=== PATIENT | male | born 1965 | race Caucasian/White ===

== ENCOUNTER 2020-06-07 11:05 | Outpatient (REF) | payer OTHER, SELFPAY ==
[2020-06-07 12:32] LABS: COVID-19 Test Negative (Negative); IDNOW Serial# 55D5AD1C
== END 2020-06-07 11:06 | disposition home or self-care (01) ==
LOC: HO.LAB 11:05
PROVIDERS: Visit Provider Internal Medicine
DX: Z20.822 Contact with and (suspected) exposure to COVID-19 (principal)
CPT/HCPCS: 36415; 87635; C9803

== ENCOUNTER 2022-05-16 09:25 | Day surgery (SDC) | payer BC, SELFPAY ==
--- NOTE | 2022-05-15 10:37 | HO.ANESPROP2 ---
HPI - Anesthesia Eval Consult details Narrative: 56yo M for Colonoscopy PMFSH Past Medical History Medical History Murmur Sleep apnea Surgical History Surgical History Hx of colonoscopy Hx of foot surgery Social History Social History Patient Tobacco Use Status: Former Tobacco user Quit Date: 25 yrs ago Use of substances other than those prescribed or required for medical reasons: Yes Substance Use Frequency: Occasionally Are you DNR?: No Advance Directives: No Advance Directives Information Provided: Yes Meds Allergies Allergy/AdvReac Type Severity Reaction Status Date / Time latex [LATEX] Allergy Unknown CONTACT Verified 05/16/22 09:43 DERMITITIS Home Medications Medication Instructions Recorded Confirmed Last Taken Type No Known Home Meds 05/16/22 05/16/22 Unknown History Exam Exam Date and Time: May 15, 2022 1037 Assessment and Plan Assessment Anesthesia Assessment: Chart Reviewed
[2022-05-16 09:44] VITALS: BMI 26.0
[2022-05-16 09:51] VITALS: BP 151/73; PULSE 62; RESP 15; TEMP 36.1; O2SAT 99
[2022-05-16] MEDS: Lactated Ringers 1,000 ML 100 ML IVCONT (10:04)
--- NOTE | 2022-05-16 11:34 | MHC.SHP ---
Pre-Procedural Eval Section A Date of Service: 05/16/22 The patient is an INPATIENT: No Changes since office visit: No Cold of Flu in the past 2 weeks, No New Medical Problems, No Changes in Medication and No Patient answered all questions The History & Physical has been completed within 30 days and I have reviewed it.: Yes Section B Chief Complaint: screening Allergies: Allergies Allergy/AdvReac Type Severity Reaction Status Date / Time latex [LATEX] Allergy Unknown CONTACT Verified 05/16/22 09:43 DERMITITIS Plan I have reviewed the history and physical and performed a pertinent physical examination on my patient. No changes have occurred unless specified. Time Spent With Patient Time: Total time managing care of this patient today ____ minutes.
--- NOTE | 2022-05-16 12:09 | HO.ANESPROP2 ---
[facility] [place] Past Medical History Medical History Murmur Sleep apnea Surgical History Surgical History Hx of colonoscopy Hx of foot surgery History of Problems with Anesthesia: No Social History Social History Patient Tobacco Use Status: Former Tobacco user Quit Date: 25 yrs ago Use of substances other than those prescribed or required for medical reasons: Yes Substance Use Frequency: Occasionally Are you DNR?: No Advance Directives: No Advance Directives Information Provided: Yes Meds Allergies Allergy/AdvReac Type Severity Reaction Status Date / Time latex [LATEX] Allergy Unknown CONTACT Verified 05/16/22 09:43 DERMITITIS Active Medications: Current Medications Lactated Ringer's (Lr) 1,000 mls @ 100 mls/hr IVCONT .Q10H TREVIN Last Admin: 05/16/22 10:04 Dose: 100 mls/hr Home Medications Medication Instructions Recorded Confirmed Last Taken Type No Known Home Meds 05/16/22 05/16/22 Unknown History Exam Exam Date and Time: May 16, 2022 1209 Height,Weight and Vital Signs: Height 6 ft Weight 87.09 kg Last Vital Signs Temp 97.0 F 05/16/22 09:51 Pulse 62 05/16/22 09:51 Resp 15 05/16/22 09:51 BP 151/73 H 05/16/22 09:51 Pulse Ox 99 05/16/22 09:51 O2 Del Method Room Air 05/16/22 09:51 Airway Mallampati Class: III TM Dist: >3cm Neck ROM: Full Heart: RRR Lungs: CTA Assessment and Plan Final Anesthetic Review History of Problems with Anesthesia: No ASA Class: II Final Preanesthetic Review: Meds/Allgs Chart Reviewed, Consent Obtained/Reviewed and Anes Risks/Benef Reviewed Patient Risk: Low Procedure Risk: Low Anesthetic Plan Anesthetic Plan: MAC: Disposition: Standard PACU and Inp. Admit - Standard Bed
[2022-05-16 12:23] VITALS: BP 100/51; PULSE 50; RESP 16; TEMP 36.3; O2SAT 100
--- NOTE | 2022-05-16 12:23 | P.BOP_ITS ---
Brief Operative Note Date of Service: 05/16/22 Pre-op diagnosis: screening Post-op diagnosis: same Procedure: colonoscopy Surgeon: Tristen Ross Anesthesia: MAC Was an Pharmacy Operations Manager used for this Procedure?: No Estimated blood loss (mL): 2 Pathology: other Condition: stable
[2022-05-16 12:38] VITALS: BP 124/69; PULSE 56; RESP 16; O2SAT 98
[2022-05-16 12:48] VITALS: BP 123/70; PULSE 54; RESP 16; TEMP 36.4; O2SAT 98
--- NOTE | 2022-05-16 13:06 | HO.POSTANES ---
Post Anesthesia Evaluation Post Anesthesia Evaluation Vital Signs: Vital Signs Temp Pulse Resp BP Pulse Ox O2 Del Method 05/16/22 12:48 97.6 F 54 16 123/70 98 Room Air 05/16/22 12:38 56 16 124/69 98 Room Air 05/16/22 12:23 97.4 F 50 16 100/51 L 100 Room Air 05/16/22 09:51 97.0 F 62 15 151/73 H 99 Room Air Anesthesia: Monitored Mental Status: Awake Pain Control: Satisfactory Nausea/Vomiting: None Hydration: Adequate Anesthesia-Related Issues: No Anes. Related Issues
--- NOTE | 2022-05-17 00:20 | OP_ITS ---
DATE OF SERVICE: 05/16/2022 SURGEON: Tristen Ross MD INDICATIONS: Colon cancer screening and family history of colon cancer. PREOPERATIVE DIAGNOSIS: POSTOPERATIVE DIAGNOSIS: PROCEDURE PERFORMED: Colonoscopy to the terminal ileum with snare polypectomy. ESTIMATED BLOOD LOSS: COMPLICATIONS: ANESTHESIA: Monitored anesthesia care. ASSISTANTS: SPECIMENS: DESCRIPTION OF PROCEDURE: A history and physical performed. The risks and benefits of the procedure were explained to the patient. Informed consent was obtained. The patient was placed in the left lateral decubitus position. A digital rectal exam was performed and was found to be normal. The Olympus pediatric video colonoscope was introduced into the rectum and advanced to the cecum without difficulty. The cecum was identified by transillumination, palpation, and identification of ileocecal valve. Examination was performed. The scope was removed. He tolerated the procedure well and was retuned to the recovery area in stable condition. FINDINGS: The terminal ileum was examined and appeared normal. The visualized colonic mucosa was normal. The quality of prep was good. Two polyps measuring less than 10 mm were identified in the rectum and removed with a cold snare. There was no other polyps identified. Retroflexed examination showed some small internal hemorrhoids. IMPRESSION: Colon polyps. RECOMMENDATION: Follow up the biopsy results. MD ELEAZAR Wright/LAYTONL / [id number]
== END 2022-05-16 13:09 | disposition home or self-care (01) ==
PROVIDERS: PCP Internal Medicine; Visit Provider Internal Medicine Gastroenterology
PROC: 0DJD8ZZ Inspection of Lower Intestinal Tract, Via Natural or Artificial Opening Endoscopic (ICD-10-PCS; CPT 45378; principal; 2022-05-16 11:10)
DX: Z12.11 Encounter for screening for malignant neoplasm of colon (principal); Z80.0 Family history of malignant neoplasm of digestive organs; K62.1 Rectal polyp; K64.8 Other hemorrhoids; G47.33 Obstructive sleep apnea (adult) (pediatric); J30.2 Other seasonal allergic rhinitis; Z99.89 Dependence on other enabling machines and devices; Z87.891 Personal history of nicotine dependence
CPT/HCPCS: 45385; 88305

== ENCOUNTER 2023-03-13 22:06 | Emergency (ER) | payer BC, SELFPAY ==
--- NOTE | 2023-03-13 | ECG_ITS ---
Test Reason : LIGHTHEADNESS Blood Pressure : / mmHG Vent. Rate : 060 BPM Atrial Rate : 060 BPM P-R Int : 158 ms QRS Dur : 092 ms QT Int : 406 ms P-R-T Axes : 066 005 059 degrees QTc Int : 406 ms Sinus rhythm with marked sinus arrhythmia Otherwise normal ECG No previous ECGs available Referred By: Arpan Dixon Electronically Signed By:Jesus Peña
--- NOTE | ~2023-03-13 | CT_ITS ---
EXAMINATION: CT HEAD WITHOUT CONTRAST CLINICAL INFORMATION: Fall. Dizziness. COMPARISON: None available. TECHNIQUE: Contiguous axial imaging was performed from the skull base to vertex without intravenous administration of contrast. This CT examination was performed using dose optimization techniques as appropriate, variously including the following: *Automated exposure control. *Adjustment of mA and/or kV according to patient size (this includes techniques or standardized protocols for targeted exams where dose is matched to indication/reason for exam; i.e. extremities or head). *Use of iterative reconstruction technique. DLP: 795 mGy-cm FINDINGS: There is no evidence of acute intracranial hemorrhage or edematous territorial infarction. Brennan-white matter differentiation is preserved. A few foci of hypoattenuation in the periventricular and deep white matter are consistent with mild microangiopathy. The ventricles are normal in morphology and size. No evidence for obstructive hydrocephalus. No abnormal mass effect or midline shift. No extra-axial fluid collections. Calcific atherosclerotic disease of the intracranial internal carotid and vertebral arteries. No hyperdense vessel sign. No acute soft tissue or osseous abnormalities. Mild mucosal thickening of the paranasal sinuses. Moderate rightward nasal septal deviation with spurring. The mastoid air cells and middle ear cavities are clear. CT/CT head/brain wo IV con IMPRESSION: 1. No evidence of acute intracranial hemorrhage or edematous territorial infarction. 2. Mild underlying microangiopathy.
--- NOTE | ~2023-03-13 | CT_ITS ---
EXAMINATION: CT ANGIOGRAM HEAD CT ANGIOGRAM NECK CLINICAL INFORMATION: Reason for Exam tia ?l sided weakness COMPARISON: None. TECHNIQUE: Test bolus sequences followed by intravenous administration 70 mL of Omnipaque 350. Helical imaging was performed in the axial plane from the aortic arch to the skull vertex. Delayed postcontrast imaging of the head was also performed. The data was processed at the chief cardiopulmonary technologist's workstation for generation of MIP sequences. Angled MIPs and volume rendered reformatted images were also generated at an offline 3D workstation. Stenoses are assessed in accordance with Gifford et al. Quantification of Carotid Stenosis on CT Angiography. AJR 2006. 27(1):13-19. This CT examination was performed using dose optimization techniques as appropriate, variously including the following: *Automated exposure control *Adjustment of mA and/or kV according to patient size (this includes techniques or standardized protocols for targeted exams where dose is matched to indication/reason for exam; i.e. extremities or head) *Use of iterative reconstruction technique DLP: 1750 mGy-cm FINDINGS: CT HEAD: Noncontrast head CT findings discussed separately. No pathologic intra-axial enhancement or regional oligemia. Moderate left sphenoid sinus mucosal disease with air-fluid level can be correlated for acute sinusitis. Moderate mucosal disease/patchy opacification of the ethmoid air cells. Frontal sinus mucosal disease with opacified frontal sinus drainage outflow tracts. Mild bilateral maxillary sinus mucosal disease with polypoid soft tissue along the medial left maxillary sinus wall which may reflect a retention cyst though can be correlated with direct inspection. CTA HEAD: Calcific plaque severely narrows the intradural left vertebral artery which demonstrates attenuated though persistent contrast filling extending distally to the vertebrobasilar confluence. Calcific plaque of the intradural right vertebral artery without significant stenosis. Calcific plaque along the carotid siphons without associated stenosis. left MANAGER RESEARCH. The remainder of the anterior and posterior circulation is widely patent. No aneurysms and no high flow vascular malformations. Timing of the contrast bolus allows assessment of the major dural venous sinuses, which all opacify normally CTA NECK: Classic 3 vessel branching pattern of the aortic arch. Origins of the great vessels are widely patent. The common carotid arteries are widely patent. The carotid bifurcations and bilateral internal carotid arteries are normal. The right vertebral artery is dominant. The vertebral artery ostia are widely patent. The dominant right vertebral artery is widely patent. 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 CT NECK: Small air-filled internal laryngocele on the left. Paramedian location of the posterior left true vocal cord and asymmetric prominence of the left laryngeal ventricle with can be correlated clinically for left vocal cord paresis versus paralysis. Cervical spondylosis. 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 Apparent severe C5-C6 and C6-C7 spinal canal stenosis with mass effect on the cord and multilevel severe neural foraminal stenosis. CT/CT angio head neck stroke IMPRESSION: 1. 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 Otherwise, no acute arterial occlusion or hemodynamically significant stenosis within the head or neck. 2. Findings described above that can be correlated clinically for left vocal cord paresis/paralysis. 3. Cervical spondylosis and ossification of the posterior longitudinal ligament at C5. Apparent severe C5-C6 and C6-C7 spinal canal stenosis with mass effect on the cord and multilevel severe neural foraminal stenosis. If there is referrable myelopathy/radiculopathy, further evaluation of these findings with dedicated cervical spine MRI may be performed as clinically warranted.
--- NOTE | 2023-03-13 22:15 | ED.NEUROSD ---
HPI - Neuro Symptoms/Deficit General Chief Complaint: General Medical Stated Complaint: AMS Time Seen by Provider: 03/13/23 22:15 Source: patient Mode of arrival: EMS Limitations: no limitations History of Present Illness HPI Narrative: Patient 57 years old otherwise healthy does not take any medication apparently was taking shower came out of the shower trying to put bathroom lost balance and fell hitting the dresser patient was slightly dizzy off balance after that and had difficulty getting up no chest pain no palpitation no vomiting no head injury no headache patient at this time feels normal no confusion. Per patient's when she noticed patient was slightly confused and leaning to the left side at difficulty standing up and noticed slight weakness on the left side no seizures patient does have history of vertigo Related Data Previous Rx's Medication Instructions Recorded aspirin 81 mg tablet,delayed 81 mg PO DAILY #30 tabs 03/14/23 release (Bess Low Dose Aspirin) Allergies Allergy/AdvReac Type Severity Reaction Status Date / Time latex [LATEX] Allergy Unknown CONTACT Verified 03/13/23 22:17 DERMITITIS Review of Systems Review of Systems: Yes all other systems are reviewed and are negative [facility] Past Medical History Medical History Murmur Sleep apnea Surgical History Hx of foot surgery Hx of colonoscopy Social History Social History Patient Tobacco Use Status: Former Tobacco user Quit Date: 25 yrs ago Smoked in Last 30 Days: No Advance Directives: No Advance Directives Information Provided: Yes Physical Exam Vital Signs: Vital Signs: Last Vital Signs Temp 97.5 F 03/13/23 22:17 Pulse 56 03/14/23 01:15 Resp 16 03/13/23 22:17 BP 144/70 H 03/14/23 01:15 Pulse Ox 98 03/14/23 01:15 O2 Del Method Room Air 03/14/23 01:15 BMI result Body Mass Index 25.7 Appearance: Alert. Oriented X3. No acute distress. Eyes: PERRLA, No Nystagmus ENT: Pharynx normal. Oral Mucosa moist Neck: Normal inspection. Neck supple. CVS: Normal heart rate and rhythm. Pulses normal. Respiratory: No respiratory distress. Equal air entry bilateral, no wheezing/rales/rhonchi Abdomen: Soft and nontender. Bowel sounds are present, no mass palpable, no CVA tenderness Skin: Skin warm and dry. Normal skin color. Normal skin turgor. Extremities: No lower extremity edema. No calf tenderness Neuro: Oriented X 3. No motor deficit. No sensory deficit.No cerebellar signs , cranial nerves II-XII intact Medications Administered Discontinued Medications Generic Name Dose Route Start Last Admin Trade Name Lori PRN Reason Stop Dose Admin Aspirin 81 mg 03/14/23 01:01 03/14/23 01:10 Aspirin Enteric Coated 81 Mg Tablet. PO 03/14/23 01:02 81 mg ONCE ONE Administration Iohexol 85 ml 03/13/23 23:56 03/13/23 23:56 Iohexol 350 Mg/Ml 100 Ml Infus..Btl IV 03/13/23 23:57 85 ml ONCE ONE Administration Medical Decision Making Medical Decision Making [facility] Narrative: Patient with history of vertigo came with off balance and feeling dizzy questionable weakness of the left side which was not appreciated on arrival no seizures noticed CT scan of the head is negative for acute stroke will do CTA head and neck to rule out any of occlusive lesion CTA showed no minute right vertebral artery with stenosis left vertebral artery no acute occlusion or stroke. Patient advised to follow with neurologist will give aspirin for now. Patient ambulatory in steady gait Differential Diagnosis Differential Diagnoses: The differential diagnosis associated with the presentation includes TIA/vertigo/dizziness/epilepsy Lab Data [facility] Lab Attestation statement: I reviewed the patient's lab results. 03/13/23 22:28 03/13/23 22:28 Labs: Lab Results 03/13/23 Range/Units 22:28 WBC 9.1 (4.8-10.8) X10*3/uL RBC 4.31 L (4.60-5.80) X10*6/uL Hgb 14.2 (14.0-18.0) g/dl Hct 41.1 L (42.0-52.0) % MCV 95.4 (80.0-98.0) fL MCH 32.9 (27.0-33.0) pg MCHC 34.5 (31.0-36.0) g/dl RDW 12.1 (11.0-16.0) % Plt Count 212 (160-400) X10*3/uL MPV 9.8 (9.4-12.4) fL Immature Gran % (Auto) 0.4 (0.0-0.4) % Neut % (Auto) 50.8 (45-73) % Lymph % (Auto) 31.9 (20-40) % [place] % (Auto) 14.3 H (2-11) % Eos % (Auto) 1.9 (0-4) % Baso % (Auto) 0.7 (0-2) % Lymph # (Auto) 2.9 (1.2-4.9) X10*3/uL [place] # (Auto) 1.3 H (0.1-1.2) X10*3/uL Eos # (Auto) 0.2 (0.0-0.4) X10*3/uL Baso # (Auto) 0.1 (0.0-0.2) X10*3/uL Abs Immat Gran (auto) 0.04 H (0.00-0.03) X10*3/uL Absolute Neuts (auto) 4.6 (2.0-8.3) x10*3/uL Absolute Nucleated RBC 0.000 (0.0-0.012) X10*3/uL Nucleated RBC % (auto) 0.0 (0.0-0.2) /100WBC Sodium 140 (135-145) mmol/L Potassium 3.7 (3.3-5.1) mmol/L Chloride 106 (96-108) mmol/L Carbon Dioxide 24 (22-29) mmol/L Anion Gap 14 (12-20) BUN 14 (9-16) mg/dL Creatinine 0.92 (0.5-1.4) mg/dL Estim Creat Clear Calc 94.8 Estimated GFR > 60 Random Glucose 108 (60-115) mg/dL Calcium 9.2 (8.4-10.2) mg/dL Total Bilirubin 0.3 (0.0-1.0) mg/dL AST 27 (5-37) U/L ALT 24 (0-40) U/L Alkaline Phosphatase 73 (39-117) U/L Troponin I High Sens < 2.7 (<3.5-35.0) ng/L Total Protein 7.0 (6.5-8.0) g/dL Albumin 3.7 (3.5-5.0) g/dL Independent Interpretation I performed an independent interpretation of an: EKG and CT Scan Interpretation: Normal sinus rhythm heart rate 60 beats per minute normal interval normal axis no acute ST T wave changes no acute ischemia Radiology Impression Discussion of test interpretation with radiology: I have reviewed the radiologist's reading. NIH Stroke Scale Internal: Initial- Upon Arrival Time: 22:18 Level of Consciousness: Alert Level of Consciousness Questions: Answers both questions correctly Level of Consciousness Commands: Performs both tasks correctly Best Gaze: Normal Visual: No visual loss Facial Palsy: Normal Motor Arm (Right): No drift Motor Arm (Left): No drift Motor Leg (Right): No drift Motor Leg (Left): No drift Limb Ataxia: Absent Sensory: Normal Best Language: No aphasia Dysarthia: Normal Extinction and Inattention: No abnormality Score: 0 Discharge Plan Discharge Clinical Impression: Dizziness Patient Disposition: Home, Self-Care Instructions: Lightheadedness (ED), Dizziness (ED) Additional Instructions: Cause of dizziness not very clear , you have narrow vertebral artery on the left side maybe that is the cause for dizziness Take baby aspirin daily Follow with neurologist for further evaluation Prescriptions: New aspirin [Bess Low Dose Aspirin] 81 mg tablet,delayed release (DR/EC) 81 mg PO DAILY Qty: 30 0RF Referrals: Cj Whitten MD [Physician] - 1 week Interventions: ED Discharge Assessment Last Done: 03/14/23 01:20 Discharge Date/Time: 03/14/23 01:21
[2023-03-13 22:17] VITALS: BP 140/69; BP 140/90; PULSE 59; RESP 16; TEMP 36.4; O2SAT 96; BMI 25.7
[2023-03-13 22:32] LABS: MANUAL DIFF FLAG NO
[2023-03-13 22:34] LABS: Basophils Absolute Auto 0.1 X10*3/uL (0.0-0.2); Basophils Percent Auto 0.7 % (0-2); Eosinophils Absolute Auto 0.2 X10*3/uL (0.0-0.4); Eosinophils Percent Auto 1.9 % (0-4); Hematocrit 41.1 % (42.0-52.0); Hemoglobin 14.2 g/dl (14.0-18.0); Imm Gran Abs Auto 0.04 X10*3/uL (0.00-0.03); Imm Gran Pct Auto 0.4 % (0.0-0.4); Lymphocytes Absolute Auto 2.9 X10*3/uL (1.2-4.9); Lymphocytes Percent Auto 31.9 % (20-40); Mean Corpuscular HGB Conc 34.5 g/dl (31.0-36.0); Mean Corpuscular Hemoglobin 32.9 pg (27.0-33.0); Mean Corpuscular Volume 95.4 fL (80.0-98.0); Mean Platelet Volume 9.8 fL (9.4-12.4); Monocytes Absolute Auto 1.3 X10*3/uL (0.1-1.2); Monocytes Percent Auto 14.3 % (2-11); Neutrophils Absolute Auto 4.6 x10*3/uL (2.0-8.3); Neutrophils Percent Auto 50.8 % (45-73); Platelet Count 212 X10*3/uL (160-400); Red Blood Count 4.31 X10*6/uL (4.60-5.80); Red Cell Distribution Width 12.1 % (11.0-16.0); White Blood Count 9.1 X10*3/uL (4.8-10.8)
[2023-03-13 22:41] VITALS: BP 123/65; PULSE 52
[2023-03-13 22:45] VITALS: BP 133/67; PULSE 63
[2023-03-13 22:46] VITALS: BP 138/71; PULSE 58
[2023-03-13 22:47] LABS: Alanine Aminotransferase 24 U/L (0-40); Albumin Level 3.7 g/dL (3.5-5.0); Alkaline Phosphatase 73 U/L (39-117); Anion Gap 14 (12-20); Aspartate Amino Transferase 27 U/L (5-37); Bilirubin Total 0.3 mg/dL (0.0-1.0); Blood Urea Nitrogen 14 mg/dL (9-16); Calcium 9.2 mg/dL (8.4-10.2); Carbon Dioxide 24 mmol/L (22-29); Chloride 106 mmol/L (96-108); Creatinine Clr Calc Pharmacy 94.8; Estimated Glomerular Filt Rate > 60; Glucose Random 108 mg/dL (60-115); Potassium 3.7 mmol/L (3.3-5.1); Sodium 140 mmol/L (135-145)
[2023-03-13 22:54] LABS: Troponin-I High Sensitivity < 2.7 ng/L (<3.5-35.0)
[2023-03-13] MEDS: iohexoL 350 MG/ML 100 ML INFUS..BTL 85 ML IV (23:56)
[2023-03-14] MEDS: Aspirin Enteric Coated 81 MG TABLET.DR PO (01:10)
[2023-03-14 01:15] VITALS: BP 144/70; PULSE 56; O2SAT 98
== END 2023-03-14 01:21 | disposition home or self-care (01) ==
PROVIDERS: Emergency Provider Internal Medicine
DX: R42 Dizziness and giddiness (principal); R53.1 Weakness; Z91.81 History of falling
CPT/HCPCS: 36415; 70450; 70496; 70498; 80053; 84484; 85025; 93005; 99284; Q9967

== ENCOUNTER → 2023-03-13 22:24 | Outpatient (BNV) | payer BC, SELFPAY | PROVIDERS: Emergency Provider Internal Medicine; Visit Provider Internal Medicine Cardiovascular Disease | DX: R42 Dizziness and giddiness (principal) | CPT/HCPCS: 93010 ==

== ENCOUNTER 2023-04-01 08:31 | Outpatient (AMB) | payer BC, SELFPAY ==
[2023-04-01 08:33] VITALS: BP 120/80; PULSE 76; BMI 26.6
--- NOTE | 2023-04-01 08:33 | MHC.OFFVIS ---
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 On March 13 he was doing his routine, he had his supper and then subsequently went on for a shower. When he came out of the shower he does not recall but he was in the bedroom and then the heard a crash came running to the bedroom. She found that he was standing but dazed. Did not appear to be pale or diaphoretic. It seems like he had fallen down and hit the dresser as everything was scattered. Patient remained days, made him sit down and he was falling instructions but still not participating in entire conversation. Patient seems like might have had a focal neurologic finding although there was no facial asymmetry. There was no bowel bladder incontinence or tongue bites. Patient then remained somewhat dazed and EMS was called. By the time EMS came he was more conversational. However he had difficulty getting into the chair and had to be held. Patient does not recall any other symptoms. Does not recall being nauseous, having palpitations, having chest pain or shortness of breath, feeling lightheaded or warm. He does not recall being diaphoretic. He said he has not had similar symptoms in the past. He has never had syncopal episode in the past. He does have history of vertigo which is episodic. Came to the emergency room and the workup here, EKG showed sinus rhythm with sinus arrhythmia otherwise normal EKG. Head CT was negative. 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 He has been started on low-dose aspirin therapy. He denies any prior vascular issues. Mother has history of atrial fibrillation at a later age. He drinks about 500 mL of water every day. Drinks a cup of coffee in the morning. Has couple of beers every night PFS Medical History Murmur Sleep apnea Surgical History Hx of foot surgery Hx of colonoscopy Family History Father HTN (hypertension) Mother No problems noted. Social History Patient Tobacco Use Status: Former Tobacco user Quit Date: 25 yrs ago Review of Systems Const Denies chills, Denies daytime sleepiness, Denies fatigue, Denies fever(s), Denies frequent falls, Denies poor appetite, Denies snoring, Denies stops breathing during sleep, Denies weakness, Denies weight gain and Denies weight loss Eyes Denies loss of vision ENT Denies dizziness and Denies hearing loss Card Denies chest pain, Denies claudication, Denies leg edema, Denies lightheadedness, Denies palpitations, Denies dyspnea, Denies dyspnea on exertion and Denies orthopnea Resp Denies cough, Denies excessive phlegm production, Denies dyspnea, Denies dyspnea on exertion, Denies snoring and Denies wheezing GI Denies abdominal pain, Denies hematochezia, Denies change in bowel habits, Denies nausea and Denies vomiting Denies dysuria and Denies urinary frequency Musc Denies arthralgias, Denies muscle weakness, Denies numbness and Denies other (frequent falls) Skin/Breast Denies nail changes and Denies rash Neuro Denies Abnormal speech present, Denies dizziness, Denies frequent falls, Denies loss of vision, Denies memory loss, Denies numbness and Denies weakness Psych Denies depression and Denies memory loss Endo Denies fatigue and Denies palpitations Erick/Lymph Reports easy bruising and Reports other (anemia) Aller/Immun Denies wheezing Physical Exam Vital Signs: Last Vital Signs Pulse 76 04/01/23 08:33 BP 120/80 04/01/23 08:33 BMI result Body Mass Index 26.6 Const General: cooperative, comfortable, no acute distress, alert, awake and Physically active Nutritional Appearance: average body habitus Orientation/consciousness: patient oriented x3 Limitations: no limitations HEENT Head: Yes normocephalic and Yes atraumatic Neck Neck: Yes trachea midline, Yes supple and Yes no JVD Resp Effort & Inspection: normal respiratory effort Auscultation: clear to auscultation bilaterally Cardio Jugular venous distension: no JVD Palpation: normal PMI Rate: regular rate Rhythm: regular rhythm Heart sounds: S1 normal heart sound present, S2 normal heart sound present, no click, no gallops, no murmurs and no rubs GI Auscultation: normal bowel sounds Skin General skin exam: no rashes or lesions noted Neuro General: patient oriented x3 and no focal motor deficits Speech: No Abnormal speech present Extrem General: Yes no clubbing, cyanosis or edema Psych Appearance: grossly normal Assessment & Plan Assessment & Plan (1) Syncope: Code(s): R55 - Syncope and collapse Plan: Syncopal episode, 1 time with no recurrence since then. Situationally syncope appears to be either vasovagal or orthostatic in nature although he had no clear prodrome and had a prolonged recovery time afterwards. Neurologic issues are less likely. Although his post syncopal confusion appears to be could be related to concussion. He is scheduled for some neurologic workup in the future. However need to rule out any significant malignant etiology of his syncopal episode. Need to evaluate for underlying structural heart disease and will therefore schedule him for stress echocardiogram and echocardiogram to assess for coronary artery disease and/or any other structural abnormalities that makes him more prone to get ventricular arrhythmias. Also suggest a 14 day Holter monitor to rule out any Apollo arrhythmias or tachyarrhythmias. I have advised him to increase his fluid and water intake and cut down on his alcohol intake. If his initial workup is within normal limits would suggest head-up tilt-table test to assess for autonomic function with tilt-table testing. This was discussed with him and his . They understand and agree. Will follow up in the clinic after above-mentioned test. Thank you for allowing me to partake in his care Orders: Orders ECG Tilt Table Test Today R55 - Syncope and collapse CA echo transthoracic complete Today R55 - Syncope and collapse ECG 14 day holter monitor Today R55 - Syncope and collapse CA echo stress exercise Today R55 - Syncope and collapse Coding Level of Care Code New Pt Level 4 (06656) Diagnoses Syncope R55
== END 2023-04-01 09:25 | disposition home or self-care (01) ==
PROVIDERS: PCP Internal Medicine; Visit Provider Internal Medicine Cardiovascular Disease
DX: R55 Syncope and collapse (principal)
CPT/HCPCS: 99204

== ENCOUNTER → 2023-04-01 08:31 | Outpatient (BNVA) | payer BC, SELFPAY | PROVIDERS: PCP Internal Medicine; Visit Provider Internal Medicine Cardiovascular Disease ==

== ENCOUNTER 2023-04-02 18:56 | Outpatient (REF) | payer BC, SELFPAY ==
--- NOTE | ~2023-04-02 | MR_ITS ---
MRI OF THE BRAIN WITHOUT IV CONTRAST MRI OF THE CERVICAL SPINE WITHOUT IV CONTRAST INDICATION: Cervical stenosis. COMPARISON: CTA head and neck 03/13/2023. TECHNIQUE: Multiplanar multisequence MR imaging of the brain and cervical spine obtained without IV contrast. FINDINGS: BRAIN MRI: There is no hydrocephalus, extra-axial surface collection, or herniation. 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 There are mild scattered T2 signal changes throughout the supratentorial white matter in a nonspecific distribution. Attenuated intradural left vertebral artery flow void in keeping with the vascular findings discussed on the 03/13/2023 CTA. Slow flow within the left venous system which is widely patent on the prior CTA study. There is no acute infarct on diffusion-weighted imaging. There is no intracranial hemorrhage on the gradient recalled echo acquisition. The midline structures are normal. The cerebellar tonsils are normally positioned. The cerebellum and brainstem are normal. The craniocervical junction is normal. Osseous marrow signal intensity is homogenous. The visualized soft tissues are unremarkable. Near-complete opacification of the ethmoid air cells bilaterally and mild mucosal thickening throughout the remaining paranasal sinuses. CERVICAL SPINE MRI: Cervical alignment is maintained. The vertebral body heights are preserved. There is mild disc volume loss at C5-C6 and C6-C7. There is no bone marrow edema. There are no acute fractures. Attenuated left vertebral artery flow void in keeping with the prior CTA findings. No significant extraspinal soft tissue findings. C2-C3: Slight annular disc bulge and bilateral facet arthropathy. No central canal stenosis and no significant foraminal stenosis. C3-C4: Uncovertebral joint spurring and facet arthropathy result in moderate to severe left and moderate right foraminal stenosis. Disc osteophyte and ligamentum flavum thickening mildly narrow the central canal. C4-C5: A shallow disc protrusion and ligamentum flavum thickening result in severe central canal stenosis and mass effect on the cord. Advanced uncovertebral joint hypertrophy and hypertrophic facet arthropathy result in severe left and moderate right foraminal stenosis. C5-C6: A broad-based disc protrusion and ligamentum flavum thickening result in severe central canal stenosis and mass effect on the cervical spinal cord. Intramedullary T2 signal changes within the right cord at this level. Advanced uncovertebral joint hypertrophy and hypertrophic facet arthropathy result in severe bilateral foraminal stenosis. C6-C7: A left paracentral disc protrusion results in severe left-sided central canal stenosis and significant mass effect on the left hemicord. Advanced uncovertebral joint hypertrophy and hypertrophic facet arthropathy result in severe left-sided foraminal stenosis. C7-T1: Slight annular disc bulge. No central canal stenosis and no foraminal stenosis. MR/MR cervical spine wo con IMPRESSION: - No acute infarcts. 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 There are mild scattered T2 signal changes throughout the supratentorial white matter in a nonspecific distribution. Attenuated intradural and cervical left vertebral artery flow void in keeping with the vascular findings discussed on the 03/13/2023 CTA. - There is advanced cervical spondylosis with disc herniations resulting in severe central canal stenosis and compression of the cervical spinal cord at the C4-C5, C5-C6, and C6-C7 levels. There are intramedullary T2 signal changes within the right hemicord at C5-C6 that should be correlated for clinical signs of acute myelopathy. This could alternatively reflect chronic myelomalacia. Advanced spondylitic changes result in varying degrees of moderate to severe foraminal stenosis throughout the cervical spine as described.
== END 2023-04-02 18:57 | disposition home or self-care (01) ==
LOC: HO.MRI 18:56
PROVIDERS: PCP Internal Medicine; Visit Provider Internal Medicine
DX: R42 Dizziness and giddiness (principal); M48.02 Spinal stenosis, cervical region
CPT/HCPCS: 70551; 72141

== ENCOUNTER 2023-04-03 07:54 | Outpatient (REF) | payer BC, SELFPAY ==
--- NOTE | 2023-04-03 07:58 | EEG_ITS ---
This is a 16 channel EEG with an EKG lead. The patient is reported awake during the tracing. Background EEG rhythm is 10-12 hertz 5 to 20 microvolt posteriorly and lower amplitude fast anteriorly. Photic stimulation does not produce any significant abnormality. Hyperventilation is unremarkable. No sharp wave spikes or paroxysmal tendency noted. Cardiac lead does not reveal any significant abnormality. IMPRESSION: Unremarkable EEG. MD ANTOINE Knox/HALLIE / [id number]
== END 2023-04-03 07:55 | disposition home or self-care (01) ==
LOC: HO.NEURO 07:54
PROVIDERS: PCP Internal Medicine; Visit Provider Internal Medicine
DX: R55 Syncope and collapse (principal)
CPT/HCPCS: 95816

== ENCOUNTER → 2023-04-24 13:46 | Outpatient (REF) | payer BC, SELFPAY ==
--- NOTE | 2023-04-24 13:50 | CA_ITS ---
Transthoracic Echocardiogram Patient (Last, First, Middle): Minh Kerr T Gender: Male Date of : 1965 Age: 57 Procedure Date: 04/24/2023 Procedure Type: Transthoracic Echocardiogram Location: OP Height: 182.88 cm Weight: 88. kg BSA: 2.10 m2 Heart Rate: 51 bpm BP: 140 / 70 mmHg Van Driver: ROCIO Referring MD: Thierry Aguilar MD Symptoms: R55 - Syncope and collapse Study Quality: Fair ECG Rhythm: Bradycardia Conclusions: - Normal left ventricular size and systolic function. The visually estimated ejection fraction is between 55-60%. There is no evidence of regional wall motion abnormalities. Diastolic function is normal for age. There is mild posterior asymmetric hypertrophy. Normal global longitudinal strain. - Normal right ventricular cavity size and systolic function. - There is mild dilatation of the sinuses of Valsalva measuring 3.80 cm and mild dilatation of the ascending aorta measuring 3.60 cm. - There is no evidence of pericardial effusion. Findings Left Ventricle Normal left ventricular size and systolic function. The visually estimated ejection fraction is between 55-60%. There is no evidence of regional wall motion abnormalities. Diastolic function is normal for age. There is mild posterior asymmetric hypertrophy. Normal global longitudinal strain. Right Ventricle Normal right ventricular cavity size and systolic function. Atria The left atrium is normal in size. The right atrium is likely dilated. Aortic Valve The aortic valve structure and function is likely normal. There is no aortic valve stenosis. There is no aortic valve regurgitation. Mitral Valve Normal mitral valve structure and function. There is no mitral valve regurgitation. There is no mitral valve stenosis. Pulmonic Valve The pulmonic valve is likely normal. Tricuspid Valve Normal tricuspid valve structure. There is no tricuspid valve regurgitation. Tricuspid regurgitation envelope is inadequate for calculation of right ventricular systolic pressure. Normal right atrial pressure. Great Vessels There is mild dilatation of the sinuses of Valsalva measuring 3.80 cm and mild dilatation of the ascending aorta measuring 3.60 cm. The visualized portions of the pulmonary artery and branches are normal. Venous The inferior vena cava is normal in size and collapses greater than 50% with inspiration. Pericardium/Pleural There is no evidence of pericardial effusion. Measurements 2D Linear Measurements IVSd: 1.00 0.6-0.9/0.6-1.0 cm LVIDd: 5.05 3.9-5.3/4.2-5.9 cm LVIDd Index: 2.40 2.4-3.2/2.2-3.1 cm/m2 LVIDs: 3.29 2.0-3.6 cm LVPWd: 1.20 0.7-1.1 cm LA Diam: 4.20 2.7-3.8/3.0-4.0 cm LAIDs Index: 2.00 1.5-2.3 cm/m2 LV Mass: 262.38 67-162/88-224 g LV Mass Index: 124.94 43-95/49-115 g/m2 LVOT Diam: 2.10 3.0+(-)1.3 cm 2D Systolic Function EF 4C: 53.80 >55% EF 2C: 69.20 >55% EF BiP: 62.40 >55% Mitral Valve MV Pk E: 0.80 MV PK A: 0.57 MV Decel Time: 152.00 E/A: 1.40 E'Lateral: 10.80 E'Medial: 8.70 E/E' Med: 9.20 E/E' Lat: 7.40 PHT: 45.00 MVA PHT: 4.89 Decel Pepin: 5.26 Aortic Valve AoV Pk John: 1.15 AoV Mn John: 0.83 AoV VTI: 0.27 AoV Pk Grad: 5.00 Aov Mn Grad: 3.00 MARKIE Cont.VTI: 2.89 LVOT LVOT Pk John: 0.89 LVOT Mn John: 0.67 LVOT VTI: 0.22 LVOT Pk Grad: 3.00 LVOT Mn Grad: 2.00 LVOT Diam: 2.10 LVOT Area: 3.46 Diastolic Function MV Pk E: 0.80 MV Pk A: 0.57 E/A: 1.40 E'Medial: 8.70 E/E' Med: 9.20 E' Laterial: 10.80 E/E' Lat: 7.40 Right Ventricle TAPSE (mm): 23.90 TVS' John: 12.60 Tricuspid Valve RA Press: 3.00 Great Vessels Aorta Sinus of Valsalva: 3.80 2.0-3.5 cm Ao Asc: 3.60 2.1-3.4 cm Pulmonary Valve PV Pk John: 1.05 Peak PV Grad: 4.00 Updated in Other Vendor System with Status of Final Jesus Peña MD electronically signed on 04/27/2023 5:11:34 PM with status of Final
== END ==
LOC: HO.CARD 13:46
PROVIDERS: PCP Internal Medicine; Visit Provider Internal Medicine Cardiovascular Disease
DX: R55 Syncope and collapse (principal)
CPT/HCPCS: 93306

== ENCOUNTER → 2023-04-24 13:50 | Outpatient (BNV) | payer BC, SELFPAY | PROVIDERS: PCP Internal Medicine; Visit Provider Internal Medicine Cardiovascular Disease | DX: I51.7 Cardiomegaly (principal) | CPT/HCPCS: 93306 ==

== ENCOUNTER → 2023-05-12 10:50 | Outpatient (REF) | payer BC, SELFPAY ==
--- NOTE | 2023-05-12 10:53 | CA_ITS ---
Acquisition Time: 2023-05-12 11:00:15 Total Exercise Time: 00:07:21 Test Indications: SYNCOPE Medications: SEE H Protocol: WENDIE Max HR: 153 BPM 95% of Pred: 161 BPM Max BP: 180/068 mmHG Max Work Load: 8.9 METS Exercise stress test exercise 7 min 21 sec of Wendie protocol achieving 93% MPHR, with mild to moderate SOB, no chest discomfort, with isolated PVCs, with restign HTN, normtensive response to exercise, with scooping noted in leads V5-V6. Echo images obtained by tech at rest and immediately post peak exercise. Definity contrast used. Test reviewed with Dr Peña. Referred By: Thierry Aguilar Overread By: Elaine Martinez
--- NOTE | 2023-05-12 10:53 | HM_ITS ---
Conclusion: 1. Patient was monitored for total period of 13 days and 22 hours, I was requested to read this study on 05/27/2023 2. Baseline was normal sinus rhythm with average heart of 78 beats per minute next 3. Intermittent episodes of atrial fibrillation noted with total burden of about 20% 3. No significant pauses noted 4. Occasional PACs and PVCs noted 5. No patient reported events MTDD
== END ==
LOC: HO.CARD 10:50
PROVIDERS: PCP Internal Medicine; Visit Provider Internal Medicine Cardiovascular Disease
DX: R55 Syncope and collapse (principal)
CPT/HCPCS: 93246; 93350; Q9957

== ENCOUNTER → 2023-05-12 10:53 | Outpatient (BNV) | payer BC, SELFPAY | PROVIDERS: PCP Internal Medicine; Visit Provider Nurse Practitioner | DX: I48.91 Unspecified atrial fibrillation (principal) | CPT/HCPCS: 93016; 93018; 93248; 93350; 93352 ==

== ENCOUNTER 2023-06-02 08:22 | Outpatient (AMB) | payer BC, SELFPAY ==
[2023-06-02 08:25] VITALS: BP 124/76; PULSE 62; BMI 26.6
--- NOTE | 2023-06-02 08:25 | A.OFFVIS_ITS ---
Intake Vital Signs 06/02/23 08:25 Height 6 ft Weight 196 lb 3.382 oz BMI 26.6 BP 124/76 Blood Pressure Location Lt brachial Position Sitting Pulse 62 Intake Visit Reasons: follow-up [facility] dc dx afib Intake Note: Follow-up [facility] dc dx afib back surgery cancelled Coordinator Integrated Marketing Required: No Allergies latex [LATEX] Allergy (Unknown, Verified 03/13/23 22:17) CONTACT DERMITITIS Medication List - Last Reconciled 06/02/23 by Thierry Aguilar MD apixaban (Eliquis) 5 mg PO BID diltiazem HCl CD 300 mg PO DAILY HPI HPI Comments History of Present Illness Details Minh comes for follow-up. He recently was scheduled for cervical spine surgery and on the day of surgery was noted to be in rapid atrial fibrillation. The surgery was therefore canceled and he was started on Cardizem CD 300 mg daily along with Eliquis although we had a loading dose of 10 mg b.i.d. for 7 days and now is on 5 mg b.i.d.. He said he did not have any symptoms of palpitations, shortness of breath, lightheadedness. He did feel his left arm to be heavy and was feeling off that day which correlated with episodes of atrial fibrillation on the Holter monitor that he was wearing. Besides that his structural heart workup with a stress echocardiogram showed no evidence of myocardial ischemia. Echocardiogram shows normal LV ejection fraction, normal valvular function, normal biatrial chamber size, mildly dilated ascending aorta. He has not had any tilt-table testing done. He does not have any exertional chest pain or shortness of breath. 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 He has cut down his alcohol intake to about 4-5 beers a day. He has had no syncopal episode. On further discussion with the who was present on the phone was determine that he actually did not have a syncopal episode because twice a day as soon as she heard him fall down she went into the bathroom and he was up on his feet a little dazed with weakness of the left side. This has not happened again. [facility] Medical History (Updated 06/02/23 @ 09:16 by Thierry Aguilar MD) Paroxysmal atrial fibrillation Syncope Murmur Sleep apnea Surgical History Hx of foot surgery Hx of colonoscopy Family History Father HTN (hypertension) Mother No problems noted. Social History Patient Tobacco Use Status: Former Tobacco user Quit Date: 25 yrs ago Review of Systems Const Denies chills, Denies fatigue, Denies fever(s), Denies frequent falls, Denies weakness, Denies weight gain and Denies weight loss ENT Denies dizziness Card Denies chest pain, Denies leg edema, Denies lightheadedness, Denies palpitations, Denies dyspnea, Denies dyspnea on exertion, Denies orthopnea and Denies other (loss of consciousness) Resp Denies cough, Denies dyspnea and Denies dyspnea on exertion GI Denies hematochezia and Denies change in stool character Musc Denies abnormal gait, Denies muscle weakness, Denies numbness, Denies radiating pain into limb and Denies tingling Neuro Denies Abnormal speech present, Denies abnormal gait, Denies dizziness, Denies frequent falls, Denies numbness, Denies tingling and Denies weakness Endo Denies fatigue and Denies palpitations Physical Exam Vital Signs: Last Vital Signs Pulse 62 06/02/23 08:25 BP 124/76 06/02/23 08:25 BMI result Body Mass Index 26.6 Const General: cooperative, comfortable, no acute distress, alert, awake and Physically active Nutritional Appearance: average body habitus Orientation/consciousness: patient oriented x3 Limitations: no limitations HEENT Head: Yes normocephalic and Yes atraumatic Neck Neck: Yes trachea midline, Yes supple and Yes no JVD Resp Effort & Inspection: normal respiratory effort Auscultation: clear to auscultation bilaterally Cardio Jugular venous distension: no JVD Palpation: normal PMI Rate: regular rate Rhythm: regular rhythm Heart sounds: S1 normal heart sound present, S2 normal heart sound present, no click, no gallops, no murmurs and no rubs GI Auscultation: normal bowel sounds Skin General skin exam: no rashes or lesions noted Neuro General: patient oriented x3 and no focal motor deficits Speech: No Abnormal speech present Extrem General: Yes no clubbing, cyanosis or edema Psych Appearance: grossly normal Office Procedures EKG Details: EKG shows normal sinus rhythm with normal EKG [id number], Complete Assessment & Plan Assessment & Plan (1) Paroxysmal atrial fibrillation: Code(s): I48.0 - Paroxysmal atrial fibrillation Plan: Patient with newly diagnosed paroxysmal atrial fibrillation without any clear obvious symptoms although he said he felt off when he was having rapid atrial fibrillation that day not able to describe the symptoms further. It seems like he had an embolic CVA. Potential etiologies for his atrial fibrillation appears sleep apnea and or alcohol use. Advised to completely taper and discontinue alcohol use. Given his embolic CVA and now atrial fibrillation he is at high risk for recurrent thromboembolic event and is therefore recommended to be on lifelong oral anticoagulation therapy. Agree with Cardizem CD for rate control. Discussed the Cardizem does not have any role in maintaining rhythm although can help with it. Advised to monitor for symptoms and some high have a tool to monitor for recurrent episodes of atrial fibrillation. If he does have frequent episodes of atrial fibrillation may consider antiarrhythmic drug therapy and/or ablation can be considered. Avoidance of stimulants such as caffeine alcohol was discussed continue treatment for sleep apnea. (2) CVA (cerebral vascular accident): Code(s): I63.9 - Cerebral infarction, unspecified Plan: Patient with multiple neurologic issues including right parietal CVA as well as cervical myelopathy as well as peripheral neuropathy. Being followed by Neurology. Management for CVA with oral anticoagulation therapy as above. He requires cervical spine surgery to reduce risk of progressive neuropathy. On reviewing the data again it seems like he never had syncopal episode and all of his symptoms of probably neurologic in nature related to his CVA. At this point in time I do not see any clear indication for him not to be able to drive as his structural heart workup is within normal limits and there is no other ventricular arrhythmias that are concerning. (3) Preoperative cardiovascular examination: Code(s): Z01.810 - Encounter for preprocedural cardiovascular examination Plan: Preoperative cardiovascular risk stratification for cervical spine surgery. Patient has cervical spinal cord compression noted on MRI and I suspect he requires more urgent surgery. I have advised him to call Dr. Marie's office and schedule for the surgery again as he is low to intermediate risk for perioperative cardiovascular morbidity mortality. Continue Cardizem in the perioperative time. His Eliquis can be held 3 days prior to the surgery and resumed as soon as possible after surgery. If he develops atrial fibrillation during surgery can use esmolol a Cardizem drip to control his heart rate. Will follow with him in 3 months time, sooner p.r.n.. Thank you for allowing me to partake in his care Coding Level of Care Code Est Pt Level 4 (86268) Diagnoses Paroxysmal atrial fibrillation I48.0 CVA (cerebral vascular accident) I63.9 Preoperative cardiovascular examination Z01.810 CPT Codes EKG - CPT: 97015-[id number], Complete ([id number])
== END 2023-06-02 09:16 | disposition home or self-care (01) ==
PROVIDERS: PCP Internal Medicine; Visit Provider Internal Medicine Cardiovascular Disease
DX: I48.0 Paroxysmal atrial fibrillation (principal); I63.9 Cerebral infarction, unspecified; Z01.810 Encounter for preprocedural cardiovascular examination
CPT/HCPCS: 93010; 99214

== ENCOUNTER → 2023-06-02 08:22 | Outpatient (BNVA) | payer BC, SELFPAY | PROVIDERS: PCP Internal Medicine; Visit Provider Internal Medicine Cardiovascular Disease | DX: Z01.810 Encounter for preprocedural cardiovascular examination (principal); I48.0 Paroxysmal atrial fibrillation; Z86.73 Personal history of transient ischemic attack (TIA), and cerebral infarction without residual deficits; Z79.899 Other long term (current) drug therapy | CPT/HCPCS: 93005 ==

== ENCOUNTER 2023-09-08 09:54 | Outpatient (AMB) | payer BC, SELFPAY ==
--- NOTE | 2023-09-08 09:57 | MHC.OFFVIS ---
Vital Signs 09/08/23 09:58 Height 6 ft Weight 191 lb 12.835 oz BMI 26.0 BP 124/80 Blood Pressure Location Lt brachial Position Sitting Pulse 60 Intake Visit Reasons: 3 mth f/up Intake Note: 3 month follow-up ? possible ablation [employer] Worker Required: No Allergies latex [LATEX] Allergy (Unknown, Verified 03/13/23 22:17) CONTACT DERMITITIS Medication List - Last Reconciled 09/08/23 by Thierry Aguilar MD apixaban (Eliquis) 5 mg PO BID 90 days metoprolol succinate ER (Toprol XL) 100 mg PO DAILY HPI Comments Details: Minh comes for follow-up. He is taking all his medications. Came off Cardizem on currently on Toprol because of leg edema. Leg edema is improved. Denies any clear symptoms suggestive of atrial fibrillation at this point in time. Has no bleeding issues or neurologic events. No exertional chest pain or shortness of breath. Denies any lightheadedness, syncope. No prolonged palpitation irregular heartbeats. [facility] Medical History (Updated 06/02/23 @ 09:16 by Thierry Aguilar MD) Paroxysmal atrial fibrillation Syncope Murmur Sleep apnea Surgical History Hx of foot surgery Hx of colonoscopy Family History Father HTN (hypertension) Mother No problems noted. Social History Patient Tobacco Use Status: Former Tobacco user Review of Systems Const Denies chills, Denies fatigue, Denies fever(s), Denies frequent falls, Denies weakness, Denies weight gain and Denies weight loss ENT Denies dizziness Card Denies chest pain, Denies leg edema, Denies lightheadedness, Denies palpitations, Denies dyspnea, Denies dyspnea on exertion, Denies orthopnea and Denies other (loss of consciousness) Resp Denies cough, Denies dyspnea and Denies dyspnea on exertion GI Denies hematochezia and Denies change in stool character Musc Denies abnormal gait, Denies muscle weakness, Denies numbness, Denies radiating pain into limb and Denies tingling Neuro Denies Abnormal speech present, Denies abnormal gait, Denies dizziness, Denies frequent falls, Denies numbness, Denies tingling and Denies weakness Endo Denies fatigue and Denies palpitations Physical Exam Vital Signs: Last Vital Signs Pulse 60 09/08/23 09:58 BP 124/80 09/08/23 09:58 BMI result Body Mass Index 26.0 Const General: cooperative, comfortable, no acute distress, alert, awake and Physically active Nutritional Appearance: average body habitus Orientation/consciousness: patient oriented x3 Limitations: no limitations HEENT Head: Yes normocephalic and Yes atraumatic Neck Neck: Yes trachea midline, Yes supple and Yes no JVD Resp Effort & Inspection: normal respiratory effort Auscultation: clear to auscultation bilaterally Cardio Jugular venous distension: no JVD Palpation: normal PMI Rate: regular rate Rhythm: regular rhythm Heart sounds: S1 normal heart sound present, S2 normal heart sound present, no click, no gallops, no murmurs and no rubs GI Auscultation: normal bowel sounds Skin General skin exam: no rashes or lesions noted Neuro General: patient oriented x3 and no focal motor deficits Speech: No Abnormal speech present Extrem General: Yes no clubbing, cyanosis or edema Psych Appearance: grossly normal Assessment & Plan Assessment & Plan (1) Paroxysmal atrial fibrillation: Code(s): I48.0 - Paroxysmal atrial fibrillation Category: Medical Plan: Paroxysmal atrial fibrillation this middle-aged man with embolic CVA without any obvious clinical recurrence. I have advised him to monitor with the help of a smart phone based EKG device if he gets any weird symptoms. Currently I would continue metoprolol therapy. Avoidance of stimulants was discussed. Abstinence from alcohol was discussed in details. Continue full oral anticoagulation given high risk for recurrent thromboembolic complication especially CVA. He was questioning whether he should undergo ablation therapy to avoid oral anticoagulation, I said the data does not support that thought process at this point time. Continue to monitor renal function every 6 months. Will follow up in the clinic in 1 year's time after an echocardiogram. Thank you for allowing me to partake in his care Coding Level of Care Code Est Pt Level 4 (45651) Diagnoses Paroxysmal atrial fibrillation I48.0
[2023-09-08 09:58] VITALS: BP 124/80; PULSE 60; BMI 26.0
== END 2023-09-08 10:55 | disposition home or self-care (01) ==
PROVIDERS: PCP Internal Medicine; Visit Provider Internal Medicine Cardiovascular Disease
DX: I48.0 Paroxysmal atrial fibrillation (principal)
CPT/HCPCS: 99214

== ENCOUNTER → 2023-09-08 09:54 | Outpatient (BNVA) | payer BC, SELFPAY | PROVIDERS: PCP Internal Medicine; Visit Provider Internal Medicine Cardiovascular Disease ==

== ENCOUNTER → 2023-11-10 08:48 | Outpatient (BNVA) | payer BC, SELFPAY | PROVIDERS: PCP Internal Medicine; Visit Provider Internal Medicine Cardiovascular Disease ==

== ENCOUNTER → 2024-02-08 10:22 | Outpatient (REF) | payer BC, SELFPAY ==
--- OUTSIDE RECORDS SUMMARY | 2024-02-08 10:25 | XMS_ITS | Patient Health Record ---
Author Organization [facility] Address [address] [place] [id number] Care Team Providers Care Drafter Cartographic Name Role Phone Venu Lr MD Primary Care Provider Tristen Gilliam Jr Unavailable [phone] 1 ALLERGIES Allergen (clinical drug ingredient) Drug/Non Drug Allergy documented on EMR Reaction Allergy Type Onset Date Status seasonal (uncoded) Unknown Allergy A ctive REASON FOR REFERRAL No Information MEDICATIONS Medication SIG (Take, Route, Frequency, Duration) Notes Start Date End Date Status MiraLax (colon prep) 17 GM/SCOOP mixed with Gatorade or Crystal Light Orally begin at 5:00 p.m. the day before the procedure for 1 day 04/23/2022 Active IMMUNIZATIONS Vaccine Route Administration Date Status Comme nts Influenza Unknown 04/23/2022 Refused SOCIAL HISTORY Sex Assigned At : Social History Observation Description Sex Assigned At Unknown PROBLEMS Problem Type ICD Code Onset Dates Problem Status W/U Status Risk SNOMED Code Notes Problem Colon cancer screening (Z12.11) Active confirmed 125169843 Problem Encounter for other preprocedural examination (Z01.818) Active confirmed 00013554 PLAN OF TREATMENT Future Test Test Name Order Date COLONOSCOPY 05/07/2016 COLONOSCOPY 04/23/2022 Insurance Providers Payer Name Payer Address Payer Phone Subscriber Number Group Number Insured Name Patient Relationship to Insured Coverage Start Date Coverage End Date [facility] [address] [place], [place] [id number] [phone] [id number] EMERY SHAW Self - patient is the insured MEDICAL (GENERAL) HISTORY Medical History History ICD Code Colonoscopy 06/22/16, normal five-year fol lowup because of family history CHARLES/CPAP Surgical History Surgery Date(Month/Year) foot surgery
--- NOTE | 2024-02-08 10:30 | HM_ITS ---
Conclusion: 1. Patient was monitored for total period of 2 days 2. Baseline was normal sinus rhythm with average heart of 54 beats per minute 3. No significant pauses noted but frequent sinus bradycardia noted with 74.5% of the time heart rate below 60 beats per minute 4. Frequent PVCs noted with total burden of 2.1% with 1 3 beat salvos of nonsustained VT at 110 beats per minute 5. No patient reported events MTDD
== END ==
LOC: HO.CARD 10:22
PROVIDERS: Visit Provider Internal Medicine
DX: I10 Essential (primary) hypertension (principal); I49.3 Ventricular premature depolarization
CPT/HCPCS: 93225

== ENCOUNTER → 2024-02-08 10:30 | Outpatient (BNV) | payer BC, SELFPAY | PROVIDERS: Visit Provider Internal Medicine Cardiovascular Disease | DX: I49.3 Ventricular premature depolarization (principal) | CPT/HCPCS: 93227 ==

== ENCOUNTER → 2024-09-09 07:49 | Outpatient (REF) | payer BC, SELFPAY ==
--- OUTSIDE RECORDS SUMMARY | 2024-09-09 07:51 | XMS_ITS | Patient Health Record ---
[facility] Address [address] [place] [address] Care Team Providers Care Landscaping Crew Leader Name Role Phone Venu Lr MD Primary Care Provider Larisa Lynn Unavailable [phone] Allergies Allergen (clinical drug ingredient) Drug/Non Drug Allergy documented on EMR Reaction Allergy Type Onset Date Status latex Unknown Drug Allergy Active Reason For Referral No Information Medications Medication SIG (Take, Route, Frequency, Duration) Notes Start Date End Date Status oxyCODONE-Acetaminophen 5-325 MG 1 tablet as needed Orally every 6 hrs; Duration: as needed 05/09/2013 Not-Taking Naproxen 500 MG 1 tablet as needed Orally every 12 hrs; Duration: 30 days 05/09/2013 Active Fluticasone Furoate Active Work Note . . . Pt may return to work 07/13/13; Duration: . 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 Problem Pain in limb (05583663) Pain in Limb (729.5) Active confirmed Plan Of Treatment Pending Test Test Name Order Date X ray : Foot, right 2V 05/30/2013 X ray : Foot, right 2V 06/09/2013 X ray : Foot, right 3V 06/14/2012 Insurance Providers Payer Name Payer Address Payer Phone Subscriber Number Group Number Insured Name Patient Relationship to Insured Coverage Start Date Coverage End Date [facility] All Others [address] [place] [address] [id number] Minh Houser Self - patient is the insured Medical (General) History Medical History History ICD Code cholesterol Surgical History Surgery Date(Month/Year) HT right 4&5 05/25/2013
--- OUTSIDE RECORDS SUMMARY | 2024-09-09 07:51 | XMS_ITS | Patient Health Record ---
Author Organization [facility] Address [address] [place] [address] Care Team Providers Care Supervisor Dried Yeast Name Role Phone Venu Lr MD Primary Care Provider Tristen Gilliam Jr Unavailable Allergies Allergen (clinical drug ingredient) Drug/Non Drug Allergy documented on EMR Reaction Allergy Type Onset Date Status seasonal (uncoded) Unknown Allergy A ctive Reason For Referral No Information Medications Medication SIG (Take, Route, Frequency, Duration) Notes Start Date End Date Status MiraLax (colon prep) 17 GM/SCOOP mixed with Gatorade or Crystal Light Orally begin at 5:00 p.m. the day before the procedure for 1 day 04/23/2022 Active Immunizations Vaccine Route Administration Date Status Comme nts Influenza Unknown 04/23/2022 Refused Problems Problem Type SNOMED Code ICD Code Onset Dates Problem Status W/U Status Risk Notes Problem [id number] Colon cancer screening (Z12.11) Active confirmed Problem 94682426 Encounter for other preprocedural examination (Z01.818) Active confirmed Plan Of Treatment Future Test Test Name Order Date COLONOSCOPY 05/07/2016 COLONOSCOPY 04/23/2022 Insurance Providers Payer Name Payer Address Payer Phone Subscriber Number Group Number Insured Name Patient Relationship to Insured Coverage Start Date Coverage End Date [facility] [address] [place], [place] [id number] EMERY SHAW Self - patient is the insured Medical (General) History Medical History History ICD Code Colonoscopy 06/22/16, normal five-year fol lowup because of family history CHARLES/CPAP Surgical History Surgery Date(Month/Year) foot surgery
--- OUTSIDE RECORDS SUMMARY | 2024-09-09 07:51 | XMS_ITS | Clinical Summary ---
Author Organization [facility] Address [address] [facility] ([place], [place]) [address] [place] [address] Phone Care Team Providers Care Cafeteria Counter Attendant Name Role Phone Venu Lr MD Primary Care Provider [phone] Stephanie Mijares PA-C Unavailable Allergies Active Allergy Reactions Criticality Noted Date Comments Diltiazem Hcl 01/21/2024 Swelling in ankles and red ring around chest Latex, Natural Rubber Rash Low 02/24/2017 Medications fluticasone propionate (FLONASE) 50 mcg/actuation nasal spray 2 sprays by Nasal route daily. 16 g 12 2018 Active Additional Information Patient taking differently:2 spray NasalDaily as needed, Reported on 07/08/2024 levocetirizine (XYZAL) 5 MG tablet Take 5 mg by mouth every evening. As needed Active sildenafiL (VIAGRA) 100 mg tabletIndications:Erec tile dysfunction, unspecified erectile dysfunction type Take 1 tablet (100 mg total) by mouth daily as needed. 6 tablet 4 2022 Active ELIQUIS 5 mg tablet Take 5 mg by mouth 2 (two) times a day. 2023 Active cyanocobalamin, vitamin B-12, 1000 MCG tablet Take 1 tablet (1,000 mcg total) by mouth daily. 30 tablet 3 2023 Active metoprolol succinate (TOPROL-XL) 50 MG 24 hr tabletIndications:Prim vicki hypertension,Paroxysma l A-fib Take 1 tablet (50 mg total) by mouth daily. 2024 Active acetaminophen-codeine (TYLENOL #4) 300-60 mg per tabletIndications:Righ t ankle swelling,Pain in joint involving right ankle and foot Take 1 tablet by mouth every 8 (eight) hours as needed for pain (specific location in comments). 21 tablet 1 2024 Active atorvastatin (LIPITOR) 20 MG tabletIndications:Uriah gn essential hypertension,Paroxysma l A-fib,Primary hypertension,Atheroscl erosis of arteries,Pure hypercholesterolemia TAKE 1 TABLET(20 MG) BY MOUTH DAILY 90 tablet 3 2024 Active atorvastatin (LIPITOR) 20 MG tabletIndications:Uriah gn essential hypertension,Paroxysma l A-fib,Primary hypertension,Atheroscl erosis of arteries,Pure hypercholesterolemia Take 1 tablet (20 mg total) by mouth daily. 90 tablet 2 08/17 Discontinued Active Problems Problem Noted Date Diagnosed Date Pain in joint involving right ankle and foot Assessment & Plan (07/08/2024 2:56 PM EDT): At this point it is unclear what is causing the swelling though it is not so pronounced to think of a hemodynamic cause for example upstream. I advised him to stay away from heat but instead embrace cold packs 20 minutes on 10 minutes off. Continue with the prednisone and if he needs to go back to work or he is having a lot of pain Tylenol with codeine 60 mg p.o. every 8 hours as needed and he can cut the tablet in half to 30 mg. He is amenable to that suggestion also continue the prednisone taper. We note that the uric acid level came back negative and even though the duplex ultrasound was negative the x-ray was positive for some swelling but no joint effusion. Please spare bearing weight on the joint as little as possible. We can write another note next Thursday if need be and we can adjust the pain medicine if need be. Watch out for constipation, allergic reaction to the codeine. Do not take more than 1000 mg Tylenol at 1 time. Neuropathy involving both lower extremities 06/17 Acute idiopathic gout of right ankle 07/05/2024 Assessment & Plan (07/05/2024 9:04 AM EDT): Typical history for gout is not given however uric acid level in the past has been high and there appears to be some swelling as well. The redness of the skin with the ankle associated gout might not be present. We should treat this like an inflamed joint and will obtain a uric acid level. Will also obtain a x-ray of the ankle. If there is fluid in the joint space we should send patient to rheumatology to have the fluid removed and examined. For now prednisone taper will be prescribed. He will call back tomorrow and if needed we can call in further medication to help with pain be at neuropathic or inflammatory. X-ray of the ankle therefore ordered, prednisone taper prescribed and a uric acid level obtained. In September that should be considered whether he might go on allopurinol. Ankle swelling 08/26/2023 Assessment & Plan (08/26/2023 10:31 AM EDT): Patient noted to have bilateral ankle swelling which does resolve. He also mentioned that that he has had bilateral ankle pain and has had 3 episodes in the course of the last year. 1 of which was so bad that he was unable to put a sheet over his foot. This sounds more along the lines of gout. However he has started a calcium channel junior for his atrial fibrillation and ankle swelling is a side effect of this medication. As well as with his red ring around his neck which resembles a sunburn. -currently he has no pain at this time. He does have some mild edema but denies any shortness of breath -obtain a uric acid level, if elevated may need to start allopurinol -patient with speak with Dr Aguilar about possible side effects of ankle swelling and red ring around chest, he sees him in two weeks. Hyperlipidemia 04/17/2017 Obstructive sleep apnea syndrome 04/17/2017 Pure hypercholesterolemia 04/17/2017 Screening for prostate cancer 04/17/2017 Sleep apnea 04/17/2017 Encounters Date Type Department Care Team Description 08/17/2024 Refill [facility] [address] [facility] [address] Venu Lr MD Medication Refill 07/20/2024 7:53 AM EDT - 07/20/2024 11:59 PM EDT Hospital Encounter [facility] [address] [place] [address] Venu Lr MD Discharge Disposition: Home or Self Care 07/19/2024 Telephone [facility] [address] [place] [address] Venu Lr MD right ankle pain 07/08/2024 2:00 PM EDT Office Visit [facility] [address] [place] [address] Facundo Powers MD Right ankle swelling (Primary Dx); Pain in joint involving right ankle and foot 07/08/2024 10:13 AM EDT - 07/08/2024 11:59 PM EDT Hospital Encounter [address] [address] Venu Lr MD Discharge Disposition: Home or Self Care 07/07/2024 Telephone [facility] [address] [place] [address] Venu Lr MD Ankle x-ray result 07/06/2024 4:06 PM EDT - 07/06/2024 11:59 PM EDT Hospital Encounter [facility], X-Ray - [facility] [address] [place] [address] Facundo Powers MD Discharge Disposition: Home or Self Care 07/05/2024 9:02 AM EDT - 07/05/2024 11:59 PM EDT Hospital Encounter [facility] [address] [place] [address] Facundo Powers MD Discharge Disposition: Home or Self Care 07/05/2024 8:30 AM EDT Office Visit [facility] [address] [place] [address] Facundo Powers MD Neuropathy involving both lower extremities (Primary Dx); Acute idiopathic gout of right ankle; Primary hypertension; Paroxysmal A-fib 07/04/2024 Telephone [facility] [address] [place] [address] Venu Lr MD foot gout from Last 3 Months Immunizations Immunization Administration Dates Next Due COVID-19 (Pre-12/08) Pfizer Vaccine, mRNA, PF ,07/20/2020 Td (adult) 5 Lf Tetanus Toxoid, PF, Adsorbed 03/2017 Td (adult),2 Lf Tetanus Toxoid, PF, Adsorbed Tdap 06/17/2007 Family History Medical History Relation Comments Colon cancer Father Alzheimer's disease Mother Atrial fibrillation Mother Breast cancer Mother Dementia Mother Hypertension Mother Hyperthyroidism Mother Relation Status Comments Brother 1 Alive Brother 2 Alive Father (Age 81) colon cancer Mother Alive alzheimers in he r later 70 s Social History Tobacco Use Types Packs/Day Years Used Date Smoking Tobacco: Former Cigarettes 0.5 23 1 980 - 2002 Smokeless Tobacco: Never Tobacco Cessation:Counseling Given: Not Answered Alcohol Use Standard Drinks/Week Comments Yes 6 (1 standard drink = 0.6 oz pur e alcohol) Child or Family Care Answer Date Record ed Do you have problems with on e of the following making it difficult for you to work, study, or receive health care? No 01/18/2024 Education Answer Date Recorded Are you interested in help w ith more adult education (for example, completing high school, GED, job training, learning the [place] language, technical skills, or developing parenting skills)? No 01/18/2024 Are you concerned about learning? Not on file 01/18/2024 No 01/18/2024 Yes 01/18/2024 Food Answer Date Recorded Within the past 6 months we worried whether our food would run out before we got money to buy more. Never True 01/18/2024 Within the past 6 months the food we bought just didn't last and we didn't have enough money to get more. Never True Residential Stability Answer Date Recor ded What is your housing situation today? I have reilly hernandez 01/18/2024 How many times have you move d in the past 12 months? Zero (I did not move) 01/18/2024 Paying for Meds Answer Date Recorded Do you have trouble paying for medicines? No 01/18/2024 Paying Utility Bills Answer Date Record ed Do you have trouble paying your heating or elect ricity bill? No 01/18/2024 Transportation Answer Date Recorded Has the lack of transportati on kept you from medical appointments or from getting medications? No 01/18/2024 Unemployment Answer Date Recorded Are you currently unemployed or working on a part-time or temporary basis, and looking for work? No 01/16/2022 Digital Access Answer Date Recorded No 01/18/2024 Yes 01/18/2024 Do you have reliable internet access at home? Ye s 01/18/2024 Do you have a device (e.g., phone, tablet, computer) with a working camera? Yes 01/18/2024 Intimate Partner Violence Answer Date R ecorded Denied Basic Needs Not on file 01/18/2024 In the past 12 months have y ou been in a relationship with a person who hurts, threatens, or tries to control you? No 01/18/2024 Worried food would run out Not on file 01/17 In the past 12 months have y ou been in a relationship with a person who hurts, threatens, or tries to control you? No 01/18/2024 Sex and Gender Information Value Date Recorded Sex Assigned at Not on file Legal Sex Male 9:42 PM EDT Gender Identity Not on file Sexual Orientation Not on file Last Filed Vital Signs Vital Sign Reading Time Taken Comments Blood Pressure 106/64 07/08/2024 2:10 PM EDT Pulse 55 07/08/2024 2:10 PM EDT Temperature 36.3 C (97.4 F) 07/08/2024 2:10 PM EDT Respiratory Rate 20 07/08/2024 2:10 PM EDT Oxygen Saturation 98% 07/08/2024 2:10 PM EDT Inhaled Oxygen Concentration - - Weight 87.7 kg (193 lb 6.4 oz) 07/08/2024 2:10 P M EDT Height 177.3 cm (5' 9.8 ) 07/08/2024 2:10 PM EDT Body Mass Index 27.91 07/08/2024 2:10 PM EDT Plan of Treatment Upcoming Encounters Date Type Department Care Team (Late st Contact Info) Description 10/03/2024 8:00 AM EDT Office Visit [facility] Internal Medicine [address] [place] [address] Venu Lr MD [address] [place] [address] [email or web address] Maintenance Due Date Last Done Comments COLOGUARD 11/07/2008 FIT TEST 11/07/2008 FOBT 11/07/2008 SIGMOIDOSCOPY 11/07/2008 VIRTUAL COLONOSCOPY 11/07/2008 PNEUMOCOCCAL VACCINES (50+ years) (1 of 1 - PCV) 11/07/2013 ZOSTER VACCINES (1 of 2) 11/07/2013 COVID-19 VACCINE (3 - season) 2023 08/14/2020, 07/20/2020 RSV VACCINE (1 - Risk 60-74 years 1-dose series) 2023 BLOOD PRESSURE 01/08/2025 07/08/2024 DEPRESSION SCREENING 01/17/2025 01/18/2024 LIPID PANEL 07/05/2025 07/05/2024, 12/06/2023, 05/20/2023, Additional history exists CREATININE LEVEL 07/20/2025 07/20/2024, , 01/21/2024, Additional history exists COLONOSCOPY 05/17/2027 05/16/2022, 07/02/2016 COLORECTAL CANCER SCREENING 05/17/2027 SCREENING FOR DIABETES 07/21/2027 , 07/05/2024, 02/25/2016 Adult Td,Tdap Booster 04/29/2028 04/29/2018 , 04/17/2017, 06/17/2007 HEPATITIS C SCREENING Completed 10/26/2012 HIV ONE-TIME SCREENING (18-65 YEARS) Completed 06/04/2020 SMOKING STATUS SCREENING (Once After 26 Yrs) Completed 07/08/2024 HEPATITIS A VACCINES Aged Out No long er eligible based on patient's age to complete this topic HIB VACCINES Aged Out No longer eligi ble based on patient's age to complete this topic MENINGOCOCCAL VACCINES (ACWY) Aged Out No longer eligible based on patient's age to complete this topic MENINGOCOCCAL VACCINES (B) Aged Out N o longer eligible based on patient's age to complete this topic Medical Devices Not on file Procedures Procedure Name Priority Date/Time Associated Diagnosis Comments SEDIMENTATION RATE (ESR) Routine 07/20/2024 7:54 AM EDT Right ankle swelling Arthralgia, unspecified joint C-REACTIVE PROTEIN Routine 07/20/2024 7: 54 AM EDT Right ankle swelling Arthralgia, unspecified joint COMPREHENSIVE METABOLIC PANEL Routine 07/20/2024 7:54 AM EDT Arthralgia, unspecified joint RHEUMATOID FACTOR Routine 07/20/2024 7:5 4 AM EDT Arthralgia, unspecified joint ANTINUCLEAR ANTIBODY (SHAMIKA) Routine 07/20/2024 7:54 AM EDT Arthralgia, unspecified joint URIC ACID Routine 07/20/2024 7:54 AM EDT Arthralgia, unspecified joint CCP IGG ANTIBODIES Routine 07/20/2024 7: 54 AM EDT Arthralgia, unspecified joint LYME SCREEN WITH REFLEX TO WESTERN BLOT, BLOOD Routine 07/20/2024 7:54 AM EDT Right ankle swelling Arthralgia, unspecified joint Ehrlichia/anaplasma PCR Routine 07/20/2024 7:54 AM EDT Right ankle swelling Arthralgia, unspecified joint US LOWER EXTREMITY VEINS DUPLEX (RIGHT) STAT 07/08/2024 10:46 AM EDT Edema, unspecified type Right leg pain XR ANKLE 3 OR MORE VIEWS (RIGHT) Routine 07/06/2024 4:17 PM EDT Acute idiopathic gout of right ankle COMPREHENSIVE METABOLIC PANEL Routine 07/05/2024 9:02 AM EDT Primary hypertension CBC AND DIFFERENTIAL Routine 07/05/2024 9:02 AM EDT Primary hypertension LIPID PANEL Routine 07/05/2024 9:02 AM EDT Pure hypercholesterolemia TSH Routine 07/05/2024 9:02 AM EDT Primary hypertension VITAMIN B12 Routine 07/05/2024 9:02 AM EDT Vitamin B12 deficiency HEMOGLOBIN A1C Routine 07/05/2024 9:02 AM EDT Impaired fasting blood sugar URIC ACID Routine 07/05/2024 9:02 AM EDT Acute idiopathic gout of right ankle HM COLONOSCOPY FOR RESULT ENTRY ONLY Routine 05/16/2022 OUTSIDE GLUCOSE FASTING Routine 02/25/2016 OUTSIDE HEPATITIS C VIRUS SCREENING Routine 10/26/2012 from Last 3 Months or Most Recently Relevant to Health Maintenance Results * Ehrlichia/anaplasma PCR (07/20/2024 7:54 AM EDT) ANAPLASMA PHAGOCYTO Negative Negative [facility] DPT OF LAB MED AND PAT+ EHRLICHIA CHAFFEENS Negative Negative [facility] DPT OF LAB MED AND PAT+ EHRL EWINGII/CANIS Negative Negative [facility] DPT OF LAB MED AND PAT+ EHRL MURIS-LIKE Negative Negative [facility] DPT OF LAB MED AND PAT+ Comment: (NOTE) ADDITIONAL INFORMATION This test was developed and its performance characteristics determined by [facility] in a manner consistent with CLIA requirements. This test has not been cleared or approved by the U.S. Food and Drug Administration. Blood 07/20/2024 7:54 AM EDT 07/20/2024 7:58 AM EDT us Venu Lr MD LAB BLOOD ORDERABLES Final Re sult [facility] DPT OF LAB MED AND PAT+ [address] [facility] [place] [address] * Lyme Screen with Reflex to Immunoblot, Blood (07/20/2024 7:54 AM EDT) Lyme AB IgG Negative Negative [facility] Lyme AB IgM Negative Negative [facility] Blood 07/20/2024 7:54 AM EDT 07/20/2024 7:58 AM EDT us Venu Lr MD LAB BLOOD ORDERABLES Final Re sult [facility] [address] [place] [address] * (ABNORMAL) Comprehensive metabolic panel (07/20/2024 7:54 AM EDT) Only the most recent of2 resultswithin the time period is included. Pathologist [facility] SODIUM 136 133 - 146 mmol/L [facility] POTASSIUM 4.1 3.3 - 5.1 mmol/L [facility] CHLORIDE 101 96 - 108 mmol/L [facility] CO2 24 21 - 35 mmol/L [facility] BUN 14 6 - 19 mg/dL [facility] CREATININE 0.90 0.5 - 1.5 mg/dL [facility] GLUCOSE 102(H) 70 - 99 mg/dL [facility] ALBUMIN 3.8(L) 3.9 - 4.8 g/dL [facility] TOTAL PROTEIN 6.9 6.5 - 8.0 g/dL [facility] CALCIUM 9.0 8.4 - 10.3 mg/dL [facility] ALKALINE PHOSPHATASE 72 39 - 117 U/L [facility] TOTAL BILIRUBIN 0.8 0.0 - 1.2 mg/dL [facility] AST 26 0 - 37 U/L [facility] ALT 40 0 - 40 U/L [facility] GLOBULIN 3.1 1 - 4.8 g/dL [facility] EGFR 98 >59 mL/min/1.7 3m2 [facility] Comment:Estimated glomerular filtration rate calculated using the CKD-EPI refit equation. ANION GAP 15 10 - 20 mmol/L [facility] Blood 07/20/2024 7:54 AM EDT 07/20/2024 7:58 AM EDT us Venu Lr MD LAB BLOOD ORDERABLES Final Re sult Performing Organization Address [facility]/ZIP Co de Phone Number [address] [address] * CCP IgG antibodies (07/20/2024 7:54 AM EDT) ANTI-CCP IGG <8 0 - 16 U/mL [facility] Blood 07/20/2024 7:54 AM EDT 07/20/2024 7:58 AM EDT us Venu Lr MD LAB BLOOD ORDERABLES Final Re sult Performing Organization Address [facility] Co de Phone Number [address] [address] * Sedimentation rate (ESR) (07/20/2024 7:54 AM EDT) ESR 11 0 - 20 mm/h [facility] Blood 07/20/2024 7:54 AM EDT 07/20/2024 7:58 AM EDT us Venu Lr MD LAB BLOOD ORDERABLES Final Re sult Performing Organization Address [facility] Co de Phone Number [address] [address] * Rheumatoid factor (07/20/2024 7:54 AM EDT) RHEUMATOID FACTOR <10.0 0.0 - 14.0 IU/ml [facility] Blood 07/20/2024 7:54 AM EDT 07/20/2024 7:58 AM EDT us Venu Lr MD LAB BLOOD ORDERABLES Final Re sult Performing Organization Address [facility] Co de Phone Number [address] [address] * (ABNORMAL) C-Reactive Protein (07/20/2024 7:54 AM EDT) C REACTIVE PROTEIN 6.4(H) 0.0 - 4.0 mg/L [facility] Blood 07/20/2024 7:54 AM EDT 07/20/2024 7:58 AM EDT us Venu Lr MD LAB BLOOD ORDERABLES Final Re sult Performing Organization Address [facility]/State/ZIP Co de Phone Number [address] [address] * Antinuclear antibody (SHAMIKA) (07/20/2024 7:54 AM EDT) SHAMIKA SCREEN ON HEP 2 Negative Negative [facility] Blood 07/20/2024 7:54 AM EDT 07/20/2024 7:58 AM EDT Venu Lr MD LAB BLOOD ORDERABLES Final Re sult Performing Organization Address [facility] Co de Phone Number [address] [address] * (ABNORMAL) Uric acid (07/20/2024 7:54 AM EDT) Only the most recent of2 resultswithin the time period is included. URIC ACID 7.9(H) 2.4 - 7.0 mg/dL [facility] Blood 07/20/2024 7:54 AM EDT 07/20/2024 7:58 AM EDT us Venu Lr MD LAB BLOOD ORDERABLES Final Re sult Performing Organization Address [facility]/ZIP Co de Phone Number [address] [address] * US Lower Extremity Veins Duplex (Right) (07/08/2024 10:46 AM EDT) Anatomical Region Laterality Modality Hip Right, Thigh Right, Knee Right, Leg Right, Ankle Right, Foot Right Ultrasound 07/08/2024 11:1 1 AM EDT Impressions 07/08/2024 11:11 AM EDT * No evidence of deep or superficial venous thrombosis in the visualized veins of the right lower extremity. Narrative 07/08/2024 11:11 AM EDT US LOWER EXTREMITY VEINS DUPLEX (RIGHT) Referring clinician's provided indication for this examination in Epic: Edema; Right Leg Pain TECHNIQUE: Lower extremity venous ultrasound with color and spectral Doppler. COMPARISON: None FINDINGS: Exam Quality: Technically adequate exam demonstrates: Right lower extremity Common femoral vein: Normal compressibility and flow characteristics. Femoral vein: Normal compressibility and flow characteristics. Proximal profunda femoral vein: Normal compressibility. Popliteal vein: Normal compressibility and flow characteristics. Posterior tibial veins: Normal compressibility. Peroneal veins: Normal compressibility. Great saphenous vein: Normal compressibility at the saphenofemoral junction. Contralateral common femoral vein: Normal compressibility. Procedure Note Lindy Jalloh MD - 07/08/2024 US LOWER EXTREMITY VEINS DUPLEX (RIGHT) Referring clinician's provided indication for this examination in Epic:Edema; Right Leg Pain TECHNIQUE: Lower extremity venous ultrasound with color and spectralDoppler. COMPARISON: None FINDINGS: Exam Quality: Technically adequate exam demonstrates: Right lower extremity Common femoral vein: Normal compressibility and flow characteristics. Femoral vein: Normal compressibility and flow characteristics. Proximal profunda femoral vein: Normal compressibility. Popliteal vein: Normal compressibility and flow characteristics. Posterior tibial veins: Normal compressibility. Peroneal veins: Normal compressibility. Great saphenous vein: Normal compressibility at the saphenofemoraljunction. Contralateral common femoral vein: Normal compressibility. IMPRESSION: * No evidence of deep or superficial venous thrombosis in the visualizedveins of the right lower extremity. us Venu Lr MD US VASCULAR Final Result * XR ANKLE 3 OR MORE VIEWS (RIGHT) (07/06/2024 4:17 PM EDT) Anatomical Region Laterality Modality Ankle Right Computed Radiogr aphy 07/07/2024 11:0 0 AM EDT Impressions 07/07/2024 11:00 AM EDT Mild soft tissue swelling without acute osseous abnormality. Narrative 07/07/2024 11:00 AM EDT XR ANKLE 3 OR MORE VIEWS (RIGHT) Referring clinician's provided indication for this examination in [facility]: Pain; hyperuricemia COMPARISON: None FINDINGS: No acute fracture or dislocation. Symmetric ankle mortise. Mild degenerative changes. Calcaneal enthesophytes. Mild soft tissue swelling. Procedure Note Minh Schumacher MD - 07/07/2024 XR ANKLE 3 OR MORE VIEWS (RIGHT) Referring clinician's provided indication for this examination in [facility]:Pain; hyperuricemia COMPARISON: None FINDINGS: No acute fracture or dislocation. Symmetric ankle mortise. Milddegenerative changes. Calcaneal enthesophytes. Mild soft tissueswelling. IMPRESSION: Mild soft tissue swelling without acute osseous abnormality. Facundo Powers MD IMG XR LOWER EXTREMITY Final Res ult * (ABNORMAL) CBC and differential (07/05/2024 9:02 AM EDT) WBC 9.72 4.00 - 11.00 K/uL [facility] RBC 4.60 4.50 - 5.90 M/uL [facility] HGB 15.3 13.5 - 17.5 g/dL [facility] HCT 44.1 41.0 - 53.0 % [facility] PLT 214 150 - 450 K/uL [facility] MCV 95.9 80.0 - 100.0 fL [facility] MCH 33.3(H) 27.0 - 31.0 pg [facility] MCHC 34.7 32.0 - 36.0 g/dL [facility] RDW 12.6 11.5 - 14.5 % [facility] MPV 10.3 8.4 - 12.0 fL [facility] NRBC 0.00 0.00 /100 WBCs [facility] ABSOLUTE NRBC 0.00 0.00 K/uL [facility] DIFF METHOD Auto [facility] NEUTS 56.2 48.0 - 76.0 % [facility] LYMPHS 28.5 18.0 - 41.0 % [facility] MONOS 12.6(H) 4.0 - 11.0 % [facility] EOS 1.4 0.0 - 5.0 % [facility] BASOS 0.6 0.0 - 1.5 % [facility] Granulocytes, immature (%) 0.7 0.0 - 0.9 % [facility] ABSOLUTE NEUTS 5.46 1.92 - 7.60 K/uL [facility] ABSOLUTE LYMPHS 2.77 0.72 - 4.10 K/uL [facility] ABSOLUTE MONOS 1.22(H) 0.16 - 1.10 K/uL [facility] ABSOLUTE EOS 0.14 0.00 - 0.50 K/uL [facility] ABSOLUTE BASOS 0.06 0.00 - 0.15 K/uL [facility] Granulocytes, immature 0.07 0.00 - 0.09 K/uL [facility] Blood 07/05/2024 9:02 AM EDT 07/05/2024 9:06 AM EDT us Venu Lr MD LAB BLOOD ORDERABLES Final Re sult Performing Organization Address City/[facility] Co de Phone Number [address] [address] * TSH (07/05/2024 9:02 AM EDT) TSH 1.51 0.27 - 4.20 uIU/mL [facility] Blood 07/05/2024 9:02 AM EDT 07/05/2024 9:06 AM EDT Venu Lr MD LAB BLOOD ORDERABLES Final Re sult [address] [address] * Hemoglobin A1c (07/05/2024 9:02 AM EDT) HEMOGLOBIN A1C 5.4 4.3 - 5.8 % [facility] Blood 07/05/2024 9:02 AM EDT 07/05/2024 9:06 AM EDT us Venu Lr MD LAB BLOOD ORDERABLES Final Re sult Performing Organization Address [facility]/ZIP Co de Phone Number [address] [address] * Vitamin B12 (07/05/2024 9:02 AM EDT) Pathologist [facility] VITAMIN B12 770 232 - 1,245 pg/mL [facility] Blood 07/05/2024 9:02 AM EDT 07/05/2024 9:06 AM EDT us Venu Lr MD LAB BLOOD ORDERABLES Final Re sult Performing Organization Address [facility] Co de Phone Number [address] [address] * (ABNORMAL) Lipid panel (07/05/2024 9:02 AM EDT) HDL 52 mg/dL [facility] Comment: Interpretation <40 mg/dL: Low HDL cholesterol (major risk factor for CHD) Greater than or equal to 60 mg/dL: High HDL cholesterol ( negative risk factor for CHD) HDL - cholesterol is affected by a number of factors, e.g. smoking, excerise, hormones, sex and age. CHOLESTEROL 134 0 - 240 mg/dL [facility] TRIGLYCERIDES 121 30 - 160 mg/dL [facility] LDL 58 50 - 129 mg/dL [facility] Comment: LDL levels in terms of risk for coronary heart disease: <100 mg/dL: Optimal 100-129 mg/dL: Near or above optimal 130-159 mg/dL: Borderline high 160-189 mg/dL: High >190 mg/dL: Very High CARDIAC RISK RATIO 2.6(L) 3.4 - 5.0 C [facility] Blood 07/05/2024 9:02 AM EDT 07/05/2024 9:06 AM EDT Venu Lr MD LAB BLOOD ORDERABLES Final Re sult [facility] [address] [place] [address] * COLONOSCOPY FOR RESULT ENTRY ONLY (05/16/2022) Venu Lr MD HEALTH MAINTENANCE Edited Res ult - Final * (ABNORMAL) Outside Glucose,Fasting (02/25/2016) Glucose, fasting - External 102(A) 65 - 99 mg/dL Historical Provider LAB BLOOD ORDERABLES Aria l Result * Outside Hepatitis C Virus Screening (10/26/2012) Hepatitis C Screening - External Neg Historical Provider LAB BLOOD ORDERABLES Aria l Result from Last 3 Months or Most Recently Relevant to Health Maintenance Insurance OUT OF STATE PPO BLUE CROSS OUT OF STATE PPO CROSS OUT OF STATE PPO BLUE CROSS OUT OF STATE PPO OUT [facility] PPO OUT [facility] PPO Care Teams Cafeteria Counter Attendant Relationship Specialty Start Date End Date Venu Lr MD [address] [place] [address] [email or web address] PCP - General 12/04/16 Stephanie Mijares PA-C [address] [place] [address] [email or web address] Physician Weld Technician Hematology 08/21/23 Additional Source Comments The information contained in this document represents components of the legal health record. It is not the complete legal health record.[facility]
--- NOTE | 2024-09-09 07:52 | CA_ITS ---
Transthoracic Echocardiogram Patient (Last, First, Middle): Minh Kerr T Gender: Male Date of : 1965 Age: 58 Procedure Date: 09/09/2024 Procedure Type: Transthoracic Echocardiogram Location: OP Height: 180.34 cm Weight: 87.54 kg BSA: 2.08 m2 Heart Rate: 78 bpm BP: 122 / 60 mmHg Ware Cleaner: Referring MD: Thierry Aguilar MD Symptoms: I48.0 - Paroxysmal atrial fibrillation Study Quality: Adequate ECG Rhythm: Atrial Fibrillation Conclusions: - Normal left ventricular cavity size. There is mildly increased left ventricular wall thickness. The left ventricular systolic function is borderline reduced. The visually estimated ejection fraction is between 45-50%. - Normal right ventricular cavity size and systolic function. - The left atrium is moderately dilated. Findings Left Ventricle Normal left ventricular cavity size. There is mildly increased left ventricular wall thickness. The left ventricular systolic function is borderline reduced. The visually estimated ejection fraction is between 45 50%. Diastolic function is indeterminate on the basis of available data. Right Ventricle Normal right ventricular cavity size and systolic function. Atria The left atrium is moderately dilated. The right atrium is likely dilated. Aortic Valve Normal aortic valve structure and function. There is no aortic valve stenosis. There is no aortic valve regurgitation. Mitral Valve The mitral valve appears normal. There is trace mitral valve regurgitation. There is no mitral valve stenosis. Pulmonic Valve The pulmonic valve is normal. There is no pulmonic valve regurgitation. Tricuspid Valve Normal tricuspid valve structure. There is trace tricuspid valve regurgitation. Normal right atrial pressure. There is no evidence of pulmonary hypertension. Great Vessels All visible segments of the aorta are normal in size. Venous The inferior vena cava is normal in size and collapses greater than 50% with inspiration. Pericardium/Pleural There is no evidence of pericardial effusion. Prior Study Comparison Changes noted compared to prior study dated: 04/24/2023. EF 45 to 50%, moderately dilated LA. Measurements 2D Linear Measurements IVSd: 1.06 0.6-0.9/0.6-1.0 cm LVIDd: 5.43 3.9-5.3/4.2-5.9 cm LVIDd Index: 2.61 2.4-3.2/2.2-3.1 cm/m2 LVIDs: 4.17 2.0-3.6 cm LVPWd: 1.10 0.7-1.1 cm Ao Root: 3.20 2.1-3.5 cm LA Diam: 4.00 2.7-3.8/3.0-4.0 cm LAIDs Index: 1.92 1.5-2.3 cm/m2 LV Mass: 288.23 67-162/88-224 g LV Mass Index: 138.57 43-95/49-115 g/m2 LVOT Diam: 2.10 3.0+(-)1.3 cm 2D Systolic Function EF 4C: 65.50 >55% EF 2C: 49.80 >55% EF BiP: 55.80 >55% Mitral Valve MV Pk E: 0.98 MV Decel Time: 171.00 E'Lateral: 13.30 E'Medial: 11.00 E/E' Med: 8.90 E/E' Lat: 7.40 PHT: 50.00 MVA PHT: 4.40 Decel Cooper: 5.73 Aortic Valve AoV Pk John: 0.96 AoV Mn John: 0.71 AoV VTI: 0.20 AoV Pk Grad: 4.00 Aov Mn Grad: 2.00 MARKIE Cont.VTI: 2.08 LVOT LVOT Pk John: 0.61 LVOT Mn John: 0.43 LVOT VTI: 0.12 LVOT Pk Grad: 1.00 LVOT Mn Grad: 1.00 LVOT Diam: 2.10 LVOT Area: 3.46 Diastolic Function MV Pk E: 0.98 E'Medial: 11.00 E/E' Med: 8.90 E' Laterial: 13.30 E/E' Lat: 7.40 Right Ventricle TAPSE (mm): 23.00 TVS' John: 9.00 Tricuspid Valve TR Pk John: 2.23 TR Pk Grad: 20.00 RA Press: 3.00 RVSP: 23.00 Great Vessels Aorta Ao Root-2D: 3.20 2.0-3.7 cm Pulmonary Valve PV Pk John: 0.88 Peak PV Grad: 3.00 Updated in Other Vendor System with Status of Final Jesus Peña MD electronically signed on 09/11/2024 2:52:37 PM with status of Final
== END ==
LOC: HO.CARD 07:49
PROVIDERS: PCP Internal Medicine; Visit Provider Internal Medicine Cardiovascular Disease
DX: I48.0 Paroxysmal atrial fibrillation (principal)
CPT/HCPCS: 93306

== ENCOUNTER → 2024-09-09 07:52 | Outpatient (BNV) | payer BC, SELFPAY | PROVIDERS: PCP Internal Medicine; Visit Provider Internal Medicine Cardiovascular Disease | DX: I51.7 Cardiomegaly (principal) | CPT/HCPCS: 93306 ==

== ENCOUNTER 2024-09-19 08:37 | Outpatient (AMB) | payer BC, SELFPAY ==
[2024-09-19 08:47] VITALS: BP 120/82; PULSE 104; BMI 24.8
--- NOTE | 2024-09-19 08:47 | A.OFFVIS_ITS ---
Vital Signs 09/19/24 08:47 Height 6 ft Weight 182 lb 15.739 oz BMI 24.8 BP 120/82 Blood Pressure Location Lt brachial Position Sitting Pulse 104 H Intake Visit Reasons: r/s 09/08/24 1 yr followup w/ekg s/p echo Intake Note: 1 year follow-up with ekg after echo c/o fatigue Life Sciences Instructor Required: No Allergies latex (LATEX) Allergy (Unknown, Verified 03/13/23 22:17) CONTACT DERMITITIS Medication List - Last Reconciled 09/19/24 by Thierry Aguilar MD apixaban (Eliquis) 5 mg PO BID atorvastatin (Lipitor) 40 mg PO BEDTIME mecobalamin (vitamin B12) mcg PO metoprolol succinate ER (Toprol XL) 50 mg (1/2 x 100 mg) PO DAILY HPI Comments Details: Minh comes for annual follow-up today. He has been noticing exertional fatigue as well as tiredness and rapid heart rate intermittently. He did not call or office for this. He came in for echo recently which showed mildly reduced LV ejection fraction with moderately dilated left atrium and was noted to be in atrial fibrillation. Comes for routine follow up visit today. He denies any orthopnea, PND, leg edema. He said he does not drink much alcohol except for 1 or 2 beers on the weekend. He does use his CPAP regularly. Takes his oral ant icoagulation regularly. Denies any exertional chest pain. No lightheadedness, syncope. [facility] Medical History Paroxysmal atrial fibrillation Syncope Murmur Sleep apnea Surgical History Hx of foot surgery Hx of colonoscopy Family History Father HTN (hypertension) Mother No problems noted. Social History Patient Tobacco Use Status: Former Tobacco user Review of Systems Const Denies chills, Denies fatigue, Denies fever(s), Denies frequent falls, Denies weakness, Denies weight gain and Denies weight loss ENT Denies dizziness Card Denies chest pain, Denies leg edema, Denies lightheadedness, Denies palpitations, Denies dyspnea, Denies dyspnea on exertion, Denies orthopnea and Denies other (loss of consciousness) Resp Denies cough, Denies dyspnea and Denies dyspnea on exertion GI Denies hematochezia and Denies change in stool character Musc Denies abnormal gait, Denies muscle weakness, Denies numbness, Denies radiating pain into limb and Denies tingling Neuro Denies Abnormal speech present, Denies abnormal gait, Denies dizziness, Denies frequent falls, Denies numbness, Denies tingling and Denies weakness Endo Denies fatigue and Denies palpitations Physical Exam Vital Signs: Last Vital Signs Pulse 104 H 09/19/24 08:47 BP 120/82 09/19/24 08:47 BMI result Body Mass Index 24.8 Const General: cooperative, comfortable, no acute distress, alert, awake and Physically active Nutritional Appearance: average body habitus Orientation/consciousness: patient oriented x3 Limitations: no limitations HEENT Head: Yes normocephalic and Yes atraumatic Neck Neck: Yes trachea midline, Yes supple and Yes no JVD Resp Effort & Inspection: normal respiratory effort Auscultation: clear to auscultation bilaterally Cardio Jugular venous distension: no JVD Palpation: normal PMI Rate: tachycardic Rhythm: abnormal rhythm irregularly irregular Heart sounds: S1 normal heart sound present, S2 normal heart sound present, no click, no gallops, no murmurs and no rubs GI Auscultation: normal bowel sounds Skin General skin exam: no rashes or lesions noted Neuro General: patient oriented x3 and no focal motor deficits Speech: No Abnormal speech present Extrem General: Yes no clubbing, cyanosis or edema Psych Appearance: grossly normal Office Procedures EKG Details: EKG shows atrial fibrillation with rapid ventricular response at 104 beats per minute with left axis deviation [id number], Complete Assessment & Plan Assessment & Plan (1) Persistent atrial fibrillation: Code(s): I48.19 - Other persistent atrial fibrillation Category: Medical Plan: Recurrent persistent symptomatic atrial fibrillation symptoms fatigue and rapid heart rate despite on rate control therapy. He has moderate left atrial enlargement. Uses CPAP regularly. Denies any significant alcohol use. At this point time we discussed again management of atrial fibrillation. Given his symptoms and slightly reduced LV ejection fraction I think he will benefit from rhythm control approach. Will pursue the same. Will need antiarrhythmic drug therapy given his left atrial enlargement. Will start him on Multaq 400 mg b.i.d. and hold metoprolol for now. Will set him up for synchronized cardioversion following that to see if this will maintain in his rhythm in the long run. We discussed the risks, benefits, alternatives to procedure. Continue use of CPAP was discussed. Continue full oral anticoagulation with Eliquis. Advised to monitor blood pressure at home. Avoid alcohol was discussed as well. Advised to seek emergency care for sudden worsening symptoms. Will follow up in the clinic after cardioversion. Thank you for allowing me to partake in his care. Medications: New dronedarone (Multaq) must administer with a meal/food 400 mg PO BID 60 tabs 3RF On Hold metoprolol succinate ER (Toprol XL) Hold Comment: Doctor's Order 50 mg (1/2 x 100 mg) PO DAILY 30 tabs 5RF Coding Level of Care Code Est Pt Level 4 (09220) Complex EM visit Add On G2211 Diagnoses Persistent atrial fibrillation I48.19 CPT Codes EKG - CPT: 22792-[id number], Complete ([id number])
--- OUTSIDE RECORDS SUMMARY | 2024-09-19 08:58 | XMS_ITS | Clinical Summary ---
Author Organization [facility] Address [address] [place] [address] Phone Care Team Providers Care Shirt Sewer Name Role Phone Venu Lr MD Primary Care Provider [phone] Stephanie Mijares PA-C Unavailable [phone] Allergies Active Allergy Reactions Criticality Noted Date Comments Diltiazem Hcl 01/21/2024 Swelling in ankles and red ring around chest Latex, Natural Rubber Rash Low 02/24/2017 Medications fluticasone propionate (FLONASE) 50 mcg/actuation nasal spray 2 sprays by Nasal route daily. 16 g 12 019 Active Additional Information Patient taking differently:2 spray NasalDaily as needed, Reported on 07/08/2024 levocetirizine (XYZAL) 5 MG tablet Take 5 mg by mouth every evening. As needed Active sildenafiL (VIAGRA) 100 mg tabletIndications:Erect ile dysfunction, unspecified erectile dysfunction type Take 1 tablet (100 mg total) by mouth daily as needed. 6 tablet 4 023 Active ELIQUIS 5 mg tablet Take 5 mg by mouth 2 (two) times a day. 024 Active cyanocobalamin, vitamin B-12, 1000 MCG tablet Take 1 tablet (1,000 mcg total) by mouth daily. 30 tablet 3 024 Active metoprolol succinate (TOPROL-XL) 50 MG 24 hr tabletIndications:Prima ry hypertension,Paroxysmal A-fib Take 1 tablet (50 mg total) by mouth daily. 05/20/2 025 Active acetaminophen-codeine (TYLENOL #4) 300-60 mg per tabletIndications:Right ankle swelling,Pain in joint involving right ankle and foot Take 1 tablet by mouth every 8 (eight) hours as needed for pain (specific location in comments). 21 tablet 1 025 Active atorvastatin (LIPITOR) 20 MG tabletIndications:Benig n essential hypertension,Paroxysmal A-fib,Primary hypertension,Atheroscle rosis of arteries,Pure hypercholesterolemia TAKE 1 TABLET(20 MG) BY MOUTH DAILY 90 tablet 3 025 Active Active Problems Problem Noted Date Diagnosed Date [...] Type Department Care Team Description 08/17/2024 Refill [facility] Internal Medicine [address] [place] [address] Venu Lr MD Medication Refill 07/20/2024 7:53 AM EDT - 07/20/2024 11:59 PM EDT Hospital Encounter [facility] [address] [place] [address] Venu Lr MD Discharge Disposition: Home or Self Care 07/19/2024 Telephone [facility] Internal Medicine [address] [place] [address] Venu Lr MD right ankle pain 07/08/2024 2:00 PM EDT Office Visit [facility] Internal Medicine [address] [place] [address] Facundo Powers MD Right ankle swelling (Primary Dx); Pain in joint involving right ankle and foot 07/08/2024 10:13 AM EDT - 07/08/2024 11:59 PM EDT Hospital Encounter [facility] [address] [place] [address] Venu Lr MD Discharge Disposition: Home or Self Care 07/07/2024 Telephone [facility] Internal Medicine [address] [place] [address] Venu Lr MD Ankle x-ray result 07/06/2024 4:06 PM EDT - 07/06/2024 11:59 PM EDT Hospital Encounter [facility], X-Ray - [address] [place] [address] Facundo Powers MD Discharge Disposition: Home or Self Care 07/05/2024 9:02 AM EDT - 07/05/2024 11:59 PM EDT Hospital Encounter [facility] [address] [place] [address] Facundo Powers MD Discharge Disposition: Home or Self Care 07/05/2024 8:30 AM EDT Office Visit [facility] Internal Medicine [address] [place] [address] Facundo Powers MD Neuropathy involving both lower extremities (Primary Dx); Acute idiopathic gout of right ankle; Primary hypertension; Paroxysmal A-fib 07/04/2024 Telephone [facility] Internal Medicine [address] [place] [address] Venu Lr MD foot gout from Last [...] Former Cigarettes 0.5 23 1 980 - 2003 Smokeless Tobacco: Never Tobacco Cessation:Counseling Given: Not [...] high school, GED, job training, learning the Maori language, technical skills, or developing parenting skills)? [...] is your housing situation today? I have [email or web address] hernandez 01/18/2024 How many times have you [...] Description 10/03/2024 8:00 AM EDT [facility] [address] [place] [address] Venu Lr MD [address] [place] [address] Health Maintenance Due Date Last Done Comments [...] SCREENING 01/17/2025 01/18/2024 LIPID PANEL 07/05/2025 07/05/2024, 06/2023, 05/20/2023, Additional history exists CREATININE LEVEL 07/20/2025 [...] * Ehrlichia/anaplasma PCR (07/20/2024 7:54 AM EDT) Pathologist [facility] ANAPLASMA PHAGOCYTO Negative Negative [facility] DPT OF LAB MED AND PAT+ EHRLICHIA CHAFFEENS Negative Negative [facility] DPT OF LAB MED AND PAT+ EHRL EWINGII/CANIS Negative Negative [facility] DPT OF LAB MED AND PAT+ EHRL MURIS-LIKE Negative Negative [facility] DPT OF LAB MED AND PAT+ Comment: (NOTE) ADDITIONAL INFORMATION This test was developed and its performance characteristics determined by [facility] in a manner consistent with CLIA requirements. This test has not been cleared or approved by the U.S. Food and Drug Administration. Blood 07/20/2024 7:54 AM EDT 07/20/2024 7:58 AM EDT us Venu Lr MD LAB BLOOD ORDERABLES Final Re sult [facility] DPT OF LAB MED AND PAT+ [address] [place] [address] * Lyme Screen with Reflex to Immunoblot, Blood (07/20/2024 7:54 AM EDT) Pathologist [facility] Lyme AB IgG Negative Negative [facility] Lyme AB IgM Negative Negative [facility] Blood 07/20/2024 7:54 AM EDT 07/20/2024 7:58 AM EDT us Venu Lr MD LAB BLOOD ORDERABLES Final Re sult Performing Organization Address City/[facility]/ZIP Co de Phone Number [address] [address] * (ABNORMAL) Comprehensive metabolic panel (07/20/2024 7:54 AM EDT) Only the most recent of2 resultswithin the time period is included. SODIUM 136 133 - 146 mmol/L [facility] POTASSIUM 4.1 3.3 - 5.1 mmol/L [facility] CHLORIDE 101 96 - 108 mmol/L [facility] CO2 24 21 - 35 mmol/L [facility] BUN 14 6 - 19 mg/dL [facility] CREATININE 0.90 0.5 - 1.5 mg/dL [facility] GLUCOSE 102(H) 70 - 99 mg/dL [facility] ALBUMIN 3.8(L) 3.9 - 4.8 g/dL [facility] TOTAL PROTEIN 6.9 6.5 - 8.0 g/dL [facility] CALCIUM 9.0 8.4 - 10.3 mg/dL [facility] ALKALINE PHOSPHATASE 72 39 - 117 U/L [facility] TOTAL BILIRUBIN 0.8 0.0 - 1.2 mg/dL [facility] AST 26 0 - 37 U/L [facility] ALT 40 0 - 40 U/L [facility] GLOBULIN 3.1 1 - 4.8 g/dL [facility] EGFR 98 >59 mL/min/1.7 3m2 [facility] Comment:Estimated glomerular filtration rate calculated using the CKD-EPI refit equation. ANION GAP 15 10 - 20 mmol/L [facility] Blood 07/20/2024 7:54 AM EDT 07/20/2024 7:58 AM EDT us Venu Lr MD LAB BLOOD ORDERABLES Final Re sult [address] [address] * CCP IgG antibodies (07/20/2024 7:54 AM EDT) ANTI-CCP IGG <8 0 - 16 U/mL [facility] Blood 07/20/2024 7:54 AM EDT 07/20/2024 7:58 AM EDT us Venu Lr MD LAB BLOOD ORDERABLES Final Re sult [address] [address] * Sedimentation rate (ESR) (07/20/2024 7:54 AM EDT) ESR 11 0 - 20 mm/h [facility] Blood 07/20/2024 7:54 AM EDT 07/20/2024 7:58 AM EDT us Venu Lr MD LAB BLOOD ORDERABLES Final Re sult Performing Organization Address [facility]/ZIP Co de Phone Number [address] [address] * Rheumatoid factor (07/20/2024 7:54 AM EDT) RHEUMATOID FACTOR <10.0 0.0 - 14.0 IU/ml [facility] Blood 07/20/2024 7:54 AM EDT 07/20/2024 7:58 AM EDT us Venu Lr MD LAB BLOOD ORDERABLES Final Re sult Performing Organization Address [facility] Co de Phone Number [address] [address] * (ABNORMAL) C-Reactive Protein (07/20/2024 7:54 AM EDT) C REACTIVE PROTEIN 6.4(H) 0.0 - 4.0 mg/L [facility] Blood 07/20/2024 7:54 AM EDT 07/20/2024 7:58 AM EDT us Venu Lr MD LAB BLOOD ORDERABLES Final Re sult Performing Organization Address [facility] Co de Phone Number [address] [address] * Antinuclear antibody (SHAMIKA) (07/20/2024 7:54 AM EDT) SHAMIKA SCREEN ON HEP 2 Negative Negative [facility] Blood 07/20/2024 7:54 AM EDT 07/20/2024 7:58 AM EDT us Venu Lr MD LAB BLOOD ORDERABLES Final Re sult Performing Organization Address [facility] de Phone Number [address] [address] * (ABNORMAL) Uric acid (07/20/2024 7:54 AM EDT) Only the most recent of2 resultswithin the time period is included. URIC ACID 7.9(H) 2.4 - 7.0 mg/dL [facility] Blood 07/20/2024 7:54 AM EDT 07/20/2024 7:58 AM EDT us Venu Lr MD LAB BLOOD ORDERABLES Final Re sult Performing Organization Address [facility] de Phone Number [address] [address] * US Lower Extremity Veins Duplex (Right) [...] right lower extremity. us Venu Lr MD [facility] VASCULAR Final Result * XR ANKLE 3 OR MORE VIEWS (RIGHT) (07/06/2024 4:17 PM EDT) Anatomical Region Laterality Modality Ankle Right Computed Radiogr aphy 07/07/2024 11:0 0 AM EDT Impressions 07/07/2024 11:00 AM EDT Mild soft tissue swelling without acute osseous abnormality. Narrative 07/07/2024 11:00 AM EDT XR ANKLE 3 OR MORE VIEWS (RIGHT) Referring clinician's provided indication for this examination in [facility]: Pain; hyperuricemia COMPARISON: None FINDINGS: No acute fracture or dislocation. Symmetric ankle mortise. Mild degenerative changes. Calcaneal enthesophytes. Mild soft tissue swelling. Procedure Note Minh Schumacher MD - 07/07/2024 XR ANKLE 3 OR MORE VIEWS (RIGHT) Referring clinician's provided indication for this examination in Epic:Pain; hyperuricemia COMPARISON: None FINDINGS: No acute fracture or dislocation. Symmetric ankle mortise. Milddegenerative changes. Calcaneal enthesophytes. Mild soft tissueswelling. IMPRESSION: Mild soft tissue swelling without acute osseous abnormality. Facundo Powers MD IMG XR LOWER EXTREMITY Final Res ult * (ABNORMAL) CBC and differential (07/05/2024 9:02 AM EDT) WBC 9.72 4.00 - 11.00 K/uL [facility] RBC 4.60 4.50 - 5.90 M/uL [facility] HGB 15.3 13.5 - 17.5 g/dL [facility] HCT 44.1 41.0 - 53.0 % [facility] PLT 214 150 - 450 K/uL [facility] MCV 95.9 80.0 - 100.0 [facility] MCH 33.3(H) 27.0 - 31.0 pg [facility] MCHC 34.7 32.0 - 36.0 g/dL [facility] RDW 12.6 11.5 - 14.5 % [facility] MPV 10.3 8.4 - 12.0 [facility] NRBC 0.00 0.00 /100 WBCs [facility] ABSOLUTE NRBC 0.00 0.00 K/uL [facility] DIFF METHOD Auto [facility] NEUTS 56.2 48.0 - 76.0 % [facility] LYMPHS 28.5 18.0 - 41.0 % [facility] MONOS 12.6(H) 4.0 - 11.0 % [facility] EOS 1.4 0.0 - 5.0 % [facility] BASOS 0.6 0.0 - 1.5 % [facility] Granulocytes, immature (%) 0.7 0.0 - 0.9 % [facility] ABSOLUTE NEUTS 5.46 1.92 - 7.60 K/uL [facility] ABSOLUTE LYMPHS 2.77 0.72 - 4.10 K/uL [facility] ABSOLUTE MONOS 1.22(H) 0.16 - 1.10 K/uL [facility] ABSOLUTE EOS 0.14 0.00 - 0.50 K/uL [facility] ABSOLUTE BASOS 0.06 0.00 - 0.15 K/uL [facility] Granulocytes, immature 0.07 0.00 - 0.09 K/uL [facility] Blood 07/05/2024 9:02 AM EDT 07/05/2024 9:06 AM EDT us Venu Lr MD LAB BLOOD ORDERABLES Final Re sult [address] [address] * TSH (07/05/2024 9:02 AM EDT) TSH 1.51 0.27 - 4.20 uIU/mL [facility] Blood 07/05/2024 9:02 AM EDT 07/05/2024 9:06 AM EDT Venu Lr MD LAB BLOOD ORDERABLES Final Re sult [address] [address] * Hemoglobin A1c (07/05/2024 9:02 AM EDT) HEMOGLOBIN A1C 5.4 4.3 - 5.8 % [facility] Blood 07/05/2024 9:02 AM EDT 07/05/2024 9:06 AM EDT Venu Lr MD LAB BLOOD ORDERABLES Final Re sult Performing Organization Address City/[facility]/ZIP Co de Phone Number [address] [address] * Vitamin B12 (07/05/2024 9:02 AM EDT) VITAMIN B12 770 232 - 1,245 pg/mL [facility] Blood 07/05/2024 9:02 AM EDT 07/05/2024 9:06 AM EDT Venu Lr MD LAB BLOOD ORDERABLES Final Re sult Performing Organization Address [facility] Co de Phone Number [address] [address] * (ABNORMAL) Lipid panel (07/05/2024 9:02 AM EDT) HDL 52 mg/dL [facility] Comment: Interpretation <40 mg/dL: Low HDL cholesterol (major risk factor for CHD) Greater than or equal to 60 mg/dL: High HDL cholesterol ( negative risk factor for CHD) HDL - cholesterol is affected by a number of factors, e.g. smoking, excerise, hormones, sex and age. CHOLESTEROL 134 0 - 240 mg/dL [facility] TRIGLYCERIDES 121 30 - 160 mg/dL [facility] LDL 58 50 - 129 mg/dL [facility] Comment: LDL levels in terms of risk for coronary heart disease: <100 mg/dL: Optimal 100-129 mg/dL: Near or above optimal 130-159 mg/dL: Borderline high 160-189 mg/dL: High >190 mg/dL: Very High CARDIAC RISK RATIO 2.6(L) 3.4 - 5.0 C [facility] Blood 07/05/2024 9:02 AM EDT 07/05/2024 9:06 AM EDT Venu Lr MD LAB BLOOD ORDERABLES Final Re sult [address] [address] * COLONOSCOPY FOR RESULT ENTRY ONLY (05/16/2022) [...] Most Recently Relevant to Health Maintenance Insurance [facility] P[facility] OUT OF STATE PPO BLUE CROSS OUT OF [facility] PPO BLUE CROSS OUT OF STATE PPO BLUE CROSS OUT OF STATE PPO OUT [facility] PPO Care Teams Shirt Sewer Relationship Specialty Start Date End Date Venu Lr MD [address] [place] [address] PCP - General 12/04/16 Stephanie Mijares PA-C [address] [place] [address] Physician Shaft Tender Hematology 08/21/23 Additional Source Comments The information contained in this document represents components of the legal health record. It is not the complete legal health record.[facility]
--- OUTSIDE RECORDS SUMMARY | 2024-09-19 08:58 | XMS_ITS | Patient Health Record ---
Author Organization [facility] Address [address] [place] [address] Care Team Providers Care Mineral Economist Name Role Phone Venu Lr MD Primary [...] Problem Status W/U Status Risk Notes Problem [id number] Colon cancer screening (Z12.11) Active confirmed Problem 30841629 Encounter for other preprocedural examination (Z01.818) Active confirmed Plan Of Treatment Future Test Test Name Order Date COLONOSCOPY 05/07/2016 COLONOSCOPY 04/23/2022 Insurance Providers Payer Name Payer Address Payer Phone Subscriber Number Group Number Insured Name Patient Relationship to Insured Coverage Start Date Coverage End Date [facility] [address] [place], [place] [id number] [phone] [id number] EMERY SHAW Self - patient is the insured Medical (General) History Medical History History ICD Code Colonoscopy 06/22/16, normal five-year fol lowup because of family history CHARLES/CPAP Surgical History Surgery Date(Month/Year) foot surgery
--- OUTSIDE RECORDS SUMMARY | 2024-09-19 08:58 | XMS_ITS | Patient Health Record ---
[facility] Organization 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 Problem Pain in limb (14913860) Pain in Limb (729.5) Active confirmed Plan Of Treatment Pending Test Test Name Order Date X ray : Foot, right 2V 05/30/2013 X ray : Foot, right 2V 06/09/2013 X ray : Foot, right 3V 06/14/2012 Insurance Providers Payer Name Payer Address Payer Phone Subscriber Number Group Number Insured Name Patient Relationship to Insured Coverage Start Date Coverage End Date [facility] All Others [address] [place] [address] [id number] Minh Houser Self - patient is the insured Medical (General) History Medical History History ICD Code cholesterol Surgical History Surgery Date(Month/Year) HT right 4&5 05/25/2013
== END 2024-09-19 09:31 | disposition home or self-care (01) ==
LOC: HO.HCS 08:37
PROVIDERS: Visit Provider Internal Medicine Cardiovascular Disease
DX: I48.19 Other persistent atrial fibrillation (principal)
CPT/HCPCS: 93010; 99214

== ENCOUNTER → 2024-09-19 08:37 | Outpatient (BNVA) | payer BC, SELFPAY | PROVIDERS: Visit Provider Internal Medicine Cardiovascular Disease | DX: I48.19 Other persistent atrial fibrillation (principal) | CPT/HCPCS: 93005 ==

== ENCOUNTER 2024-09-28 12:53 | Day surgery (SDC) | payer BC, SELFPAY ==
[2024-09-26 14:08] VITALS: BMI 24.8
--- NOTE | 2024-09-26 14:47 | HO.ANESPROP2 ---
Documented by User: Jeni Shahid NP 09/26/24 14:48 HPI - Anesthesia Eval Consult details Narrative: 58yo M for Cardioversion Eliquis for afib PMFSH Active Problems Active Problems: All Active Problems Persistent atrial fibrillation (Acute) Paroxysmal atrial fibrillation (Acute) Past Medical History Medical History Paroxysmal atrial fibrillation Syncope Murmur Sleep apnea Family History Family History Father HTN (hypertension) Mother No problems noted. Surgical History Surgical History Hx of foot surgery Hx of colonoscopy History of Problems with Anesthesia: No Social History Social History Are you a primary healthcare management consultant to a significant other at home: No Do you presently have visiting nurse or other home services: No Patient Tobacco Use Status: Former Tobacco user Tobacco use type: Cigarette Use of substances other than those prescribed or required for medical reasons: Yes Substance Use Frequency: Weekly Have you been hit, kicked, punched, or otherwise hurt by someone within the past year? If so, by whom?: No Advance Directives: No Advance Directives Information Provided: Yes Poor oral hygiene: No Meds Allergies Allergy/AdvReac Type Severity Reaction Status Date / Time latex (LATEX) Allergy Unknown CONTACT Verified 09/28/24 13:16 DERMITITIS Home Medications ?Medication ?Instructions ?Recorded ?Confirmed ?Last Taken ?Type atorvastatin 40 mg tablet (Lipitor) 40 mg PO BEDTIME 09/19/24 09/28/24 09/28/24 History mecobalamin (vitamin B12) 500 mcg 500 mcg PO DAILY 09/19/24 09/28/24 09/28/24 History chewable tablet Exam Height,Weight and Vital Signs: Height 6 ft Weight 83.007 kg Narrative Narrative: EKG 09/2024 Afib with RVR @ 104 Echo 08/2024 Conclusions: - Normal left ventricular cavity size. There is mildly increased left ventricular wall thickness. The left ventricular systolic function is borderline reduced. The visually estimated ejection fraction is between 45-50%. - Normal right ventricular cavity size and systolic function. - The left atrium is moderately dilated. Assessment and Plan Assessment Anesthesia Assessment: Chart Reviewed Final Anesthetic Review History of Problems with Anesthesia: No Documented by User: Brandan Valadez MD 09/28/24 14:30 [facility] Past Medical History Medical History Paroxysmal atrial fibrillation Syncope Murmur Sleep apnea Functional capacity: independent ambulation Family History Family History Father HTN (hypertension) Mother No problems noted. Family history of problems with anesthesia: No Surgical History Surgical History Hx of foot surgery Hx of colonoscopy Social History Social History Are you a primary healthcare management consultant to a significant other at home: No Do you presently have visiting nurse or other home services: No Patient Tobacco Use Status: Former Tobacco user Tobacco use type: Cigarette Use of substances other than those prescribed or required for medical reasons: Yes Substance Use Frequency: Weekly Have you been hit, kicked, punched, or otherwise hurt by someone within the past year? If so, by whom?: No Advance Directives: No Advance Directives Information Provided: Yes Poor oral hygiene: No Meds Allergies Allergy/AdvReac Type Severity Reaction Status Date / Time latex (LATEX) Allergy Unknown CONTACT Verified 09/28/24 13:16 DERMITITIS Home Medications ?Medication ?Instructions ?Recorded ?Confirmed ?Last Taken ?Type atorvastatin 40 mg tablet (Lipitor) 40 mg PO BEDTIME 09/19/24 09/28/24 09/28/24 History mecobalamin (vitamin B12) 500 mcg 500 mcg PO DAILY 09/19/24 09/28/24 09/28/24 History chewable tablet Exam Exam Date and Time: Airway Mallampati Class: II TM Dist: >3cm Neck ROM: Full Denture: Upper Loose/Missing/Broken Teeth: No Heart: rrr Lungs: cta Other: normal Assessment and Plan Assessment Anesthesia Assessment: Anesthesia Plan Discussed and Smoking Cess. Discussed Final Anesthetic Review Family History of Problems with Anesthesia: No NPO: Yes ASA Class: III Final Preanesthetic Review: No Changes in Pt Med Stat, Meds/Allgs Chart Reviewed, Consent Obtained/Reviewed and Anes Risks/Benef Reviewed Patient Risk: Low Procedure Risk: Low Anesthetic Plan Anesthetic Plan: MAC: Disposition: Standard PACU
[2024-09-28 13:19] VITALS: BP 123/75; PULSE 113; RESP 14; TEMP 36.6; O2SAT 97; BMI 24.8
--- NOTE | 2024-09-28 13:47 | MHC.SHP ---
Pre-Procedural Eval Section A - 24 Hr Update-Section A only Date of Service: 09/28/24 The patient is an INPATIENT: No Changes since office visit: Yes Changes in Medication and Yes Patient answered all questions; No Cold of Flu in the past 2 weeks and No New Medical Problems The patient has been examined within 24 hours of the surgical procedure. The History & Physical has been completed within 30 days and I have reviewed it.: Yes Section B - Complete if H&P > 30 days Chief Complaint: Other persistent atrial fibrillation Allergies: Allergies Allergy/AdvReac Type Severity Reaction Status Date / Time latex (LATEX) Allergy Unknown CONTACT Verified 09/28/24 13:16 DERMITITIS Plan I have reviewed the history and physical and performed a pertinent physical examination on my patient. No changes have occurred unless specified. Time Spent With Patient Time: Total time managing care of this patient today ____ minutes.
[2024-09-28] MEDS: Lactated Ringers 1,000 ML 50 ML IVCONT (13:55)
--- NOTE | 2024-09-28 14:59 | ECG_ITS ---
Test Reason : post cardioversiom Blood Pressure : */* mmHG Vent. Rate : 56 BPM Atrial Rate : 56 BPM P-R Int : 160 ms QRS Dur : 82 ms QT Int : 448 ms P-R-T Axes : 47 -40 42 degrees QTcB Int : 432 ms Sinus bradycardia with Premature atrial complexes Left axis deviation Inferior infarct , age undetermined Abnormal ECG When compared with ECG of 13-Mar-2023 22:24, Premature atrial complexes are now Present QRS axis Shifted left Inferior infarct is now Present Referred By: Thierry Aguilar Electronically Signed By: Jesus Peña
[2024-09-28 15:00] VITALS: BP 99/56; PULSE 61; RESP 19; TEMP 37.1; O2SAT 98
--- NOTE | 2024-09-28 15:00 | HO.CARDIVERS ---
Cardioversion Procedure Note Cardioversion Date of Procedure: 09/28/2024 Ordering Provider: Marilee Aguilar Performing Provider: Marilee Aguilar Indication for Procedure: Recurrent persistent atrial fibrillation symptomatic Pre-Op Diagnosis: Same Post-Op Diagnosis: Normal sinus rhythm Performed with Transesophageal Echo: No History: See my office note Consent: Verbal and Written consent was obtained from the patient before starting and confirming oral anticoagulation antiarrhythmic use. The patient was made aware of the risk of synchronized cardioversion including benefits and alternatives Procedure: After consent obtained, cardioversion pads were attached in anteroposterior configuration and the patient was sedated by the anesthesia team. Once adequate sedation achieved, patient was delivered 200 joules of biphasic synchronized energy in anteroposterior configuration. Complications: None Impression: Successful conversion to sinus rhythm Recommendations: 1. Twelve lead EKG 2. Continue Multaq and oral anticoagulation 3. Follow up in the office
[2024-09-28 15:05] VITALS: BP 107/67; PULSE 63; RESP 17; O2SAT 98
[2024-09-28 15:10] VITALS: BP 104/61; PULSE 61; RESP 17; O2SAT 100
[2024-09-28 15:15] VITALS: BP 110/72; PULSE 66; RESP 16; O2SAT 100
[2024-09-28 15:30] VITALS: BP 128/85; PULSE 67; RESP 17; O2SAT 100
== END 2024-09-28 16:15 | disposition home or self-care (01) ==
PROVIDERS: PCP Internal Medicine; Visit Provider Internal Medicine Cardiovascular Disease
PROC: 5A2204Z Restoration of Cardiac Rhythm, Single (ICD-10-PCS; principal; 2024-09-28 14:30)
DX: I48.19 Other persistent atrial fibrillation (principal); Z79.01 Long term (current) use of anticoagulants; I48.0 Paroxysmal atrial fibrillation; R55 Syncope and collapse; R01.1 Cardiac murmur, unspecified; G47.30 Sleep apnea, unspecified; Z79.899 Other long term (current) drug therapy; Z99.89 Dependence on other enabling machines and devices; Z91.040 Latex allergy status
CPT/HCPCS: 92960; 93005; J2704

== ENCOUNTER → 2024-09-28 12:53 | Outpatient (BNV) | payer BC, SELFPAY | PROVIDERS: PCP Internal Medicine; Visit Provider Internal Medicine Cardiovascular Disease | DX: I49.1 Atrial premature depolarization (principal); R00.1 Bradycardia, unspecified | CPT/HCPCS: 92960; 93010 ==

== ENCOUNTER → 2024-10-11 08:02 | Outpatient (REF) | payer BC, SELFPAY ==
--- NOTE | 2024-10-11 08:04 | HM_ITS ---
Conclusion: 1. Patient was monitored for total period of 3 days 2. Baseline rhythm is atrial fibrillation with average heart rate of 99 beats per minute with overall inadequate rate control with 36% of the time heart rate about 100 beats per minute 3. No significant pauses noted 4. No patient reported events MTDD
--- OUTSIDE RECORDS SUMMARY | 2024-10-11 08:04 | XMS_ITS | Patient Health Record ---
Author Organization [facility] Address [address] [place] [id number] Care Team Providers Care Search Coordinator Name Role Phone Venu Lr MD Primary [...] Problem Status W/U Status Risk Notes Problem [id number] Colon cancer screening (Z12.11) Active confirmed Problem [id number] Encounter for other preprocedural examination (Z01.818) Active confirmed Plan Of Treatment Future Test Test Name Order Date COLONOSCOPY 05/07/2016 COLONOSCOPY 04/23/2022 Insurance Providers Payer Name Payer Address Payer Phone Subscriber Number Group Number Insured Name Patient Relationship to Insured Coverage Start Date Coverage End Date [facility] [address] [place], [place] [id number] EMERY SHAW Self - patient is the insured Medical (General) History Medical History History ICD Code Colonoscopy 06/22/16, normal five-year fol lowup because of family history CHARLES/CPAP Surgical History Surgery Date(Month/Year) foot surgery
--- OUTSIDE RECORDS SUMMARY | 2024-10-11 08:04 | XMS_ITS | Clinical Summary ---
Author Organization [facility] Address [address] [place] [address] Phone Care Team Providers Care Shortage Worker Name Role Phone Venu Lr MD Primary Care Provider [phone] Stephanie Mijares PA-C Unavailable [phone] Allergies Active Allergy Reactions Criticality Noted Date Comments Diltiazem Hcl 01/21/2024 Swelling in ankles and red ring around chest Latex, Natural Rubber Rash Low 02/24/2017 Medications fluticasone propionate (FLONASE) 50 mcg/actuation nasal spray 2 sprays by Nasal route daily. 16 g 12 019 Active Additional Information Patient taking differently:2 spray NasalDaily as needed, Reported on 10/03/2024 levocetirizine (XYZAL) 5 MG tablet Take 5 [...] total) by mouth daily. 05/20/2 025 Active Additional Information Patient not taking.Reported on 10/03/2024 acetaminophen-codeine (TYLENOL #4) 300-60 mg per tabletIndications:Right ankle swelling,Pain in joint involving right ankle and foot Take 1 tablet by mouth every 8 (eight) hours as needed for pain (specific location in comments). 21 tablet 1 Active atorvastatin (LIPITOR) 20 MG tabletIndications:Naeem key essential hypertension,Paroxysmal A-fib,Primary hypertension,Atheroscle rosis of arteries,Pure hypercholesterolemia TAKE 1 TABLET(20 MG) BY MOUTH DAILY 90 tablet 3 Active dronedarone (MULTAQ) 400 mg tablet Take 400 mg by mouth 2 (two) times a day. Active Active Problems Problem Noted Date Diagnosed [...] Encounters Date Type Department Care Team Description 10/03/2024 8:43 AM EDT - 10/03/2024 11:59 PM EDT Hospital Encounter [facility] [address] [place] [address] Venu Lr MD Discharge Disposition: Home or Self Care 10/03/2024 8:00 AM EDT Office Visit [facility] Internal Medicine [address] [place] [address] Venu Lr MD Paroxysmal A-fib (Primary Dx); Tick bite of right lower leg, initial encounter; Encounter for monitoring direct oral anticoagulant therapy; Elevated uric acid in blood; Pure hypercholesterolemia; Impaired fasting glucose 10/03/2024 Orders Only [facility] Internal Medicine [address] [place] [address] ProviderYue MD 08/17/2024 Refill [facility] Internal Medicine [address] [place] [address] Venu Lr MD Medication Refill 07/20/2024 7:53 AM EDT - 07/20/2024 11:59 PM EDT Hospital Encounter [facility] [address] [place] [address] Venu Lr MD Discharge Disposition: Home or Self Care 07/19/2024 Telephone [facility] Internal Medicine [address] [place] [address] Venu Lr MD right ankle pain from Last 3 Months Immunizations Immunization Administration Dates Next Due COVID-19 (Pre-12/08) Pfizer Vaccine, mRNA, PF ,07/20/2020 Td (adult) 5 Lf Tetanus Toxoid, PF, Adsorbed 03/2017 Td (adult),2 Lf Tetanus Toxoid, PF, Adsorbed Tdap 06/17/2007 Family History Medical History Relation Comments Atrial fibrillation Brother 1 Sleep apnea Brother 1 Colon cancer Father Alzheimer's disease Mother Atrial [...] high school, GED, job training, learning the [place]ian language, technical skills, or developing parenting skills)? [...] Sign Reading Time Taken Comments Blood Pressure 122/72 10/03/2024 7:54 AM EDT Pulse 66 10/03/2024 7:54 AM EDT Temperature 36.9 C (98.5 F) 10/03/2024 7:54 AM EDT Respiratory Rate 26 10/03/2024 7:54 AM EDT Oxygen Saturation 96% 10/03/2024 7:54 AM EDT Inhaled Oxygen Concentration - - Weight 85.5 kg (188 lb 6.4 oz) 10/03/2024 7:54 A M EDT Height 177.3 cm (5' 9.8 ) 10/03/2024 7:54 AM EDT Body Mass Index 27.19 10/03/2024 7:54 AM EDT Plan of Treatment Upcoming Encounters Date Type Department Care Team (Late st Contact Info) Description 03/24/2025 9:30 AM EST Office Visit [facility] Internal Medicine [address] [place] [address] Venu Lr MD [address] [place] [address] [email or web address] Health Maintenance Due Date Last Done Comments COLOGUARD 11/07/2008 FIT TEST 11/07/2008 FOBT 11/07/2008 SIGMOIDOSCOPY 11/07/2008 VIRTUAL COLONOSCOPY 11/07/2008 PNEUMOCOCCAL VACCINES (50+ years) (1 of 1 - PCV) 11/07/2013 ZOSTER VACCINES (1 of 2) 11/07/2013 COVID-19 VACCINE (3 - season) 2023 08/14/2020, 07/20/2020 RSV VACCINE (1 - Risk 60-74 years 1-dose series) 2023 DEPRESSION SCREENING 01/17/2025 01/18/2024 BLOOD PRESSURE 04/05/2025 10/03/2024 LIPID PANEL 07/05/2025 07/05/2024, 12/0 06/2023, 05/20/2023, Additional history exists CREATININE LEVEL 10/03/2025 10/03/2024, 05/2024, 07/05/2024, Additional history exists COLONOSCOPY 05/17/2027 05/16/2022, 07/02/2016 COLORECTAL CANCER SCREENING 05/17/2027 SCREENING FOR DIABETES 10/04/2027 , 10/03/2024, 02/25/2016 Adult Td,Tdap Booster 04/29/2028 04/29/2018 , 04/17/2017, 06/17/2007 HEPATITIS C SCREENING Completed 10/26/2012 HIV ONE-TIME SCREENING (18-65 YEARS) Completed 06/04/2020 SMOKING STATUS SCREENING (Once After 26 Yrs) Completed 10/03/2024 HEPATITIS A VACCINES Aged Out No long [...] Procedure Name Priority Date/Time Associated Diagnosis Comments OUTSIDE IMAGING Routine 10/03/2024 2:11 PM EDT URIC ACID Routine 10/03/2024 8:43 AM EDT Elevated uric acid in blood C-REACTIVE PROTEIN Routine 10/03/2024 8: 43 AM EDT Tick bite of right lower leg, initial encounter CBC AND DIFFERENTIAL Routine 10/03/2024 8:43 AM EDT Paroxysmal A-fib Tick bite of right lower leg, initial encounter Encounter for monitoring direct oral anticoagulant therapy COMPREHENSIVE METABOLIC PANEL Routine 10/03/2024 8:43 AM EDT Pure hypercholesterolemia HEMOGLOBIN A1C Routine 10/03/2024 8:43 AM EDT Impaired fasting glucose LYME SCREEN WITH REFLEX TO WESTERN BLOT, BLOOD Routine 10/03/2024 8:43 AM EDT Tick bite of right lower leg, initial encounter SEDIMENTATION RATE (ESR) Routine 07/20/2024 7:54 AM [...] EDT Right ankle swelling Arthralgia, unspecified joint LIPID PANEL Routine 07/05/2024 9:02 AM EDT Pure hypercholesterolemia COLONOSCOPY FOR RESULT ENTRY ONLY Routine 05/16/2022 OUTSIDE GLUCOSE FASTING Routine 02/25/2016 OUTSIDE HEPATITIS C VIRUS SCREENING Routine 10/26/2012 from Last 3 Months or Most Recently Relevant to Health Maintenance Results * Outside Imaging Report Only (10/03/2024 2:11 PM EDT) us Historical Provider MD BONILLA XR CHEST Final Res ult * Lyme Screen with Reflex to Immunoblot, Blood (10/03/2024 8:43 AM EDT) Only the most recent of2 resultswithin the time period is included. Lyme AB IgG Negative Negative [facility] Lyme AB IgM Negative Negative [facility] Blood 10/03/2024 8:43 AM EDT 10/03/2024 8:45 AM EDT us Venu Lr MD LAB BLOOD ORDERABLES Final Re sult [facility] [address] [place] [address] * Comprehensive metabolic panel (10/03/2024 8:43 AM EDT) Only the most recent of2 resultswithin the time period is included. Pathologist [facility] SODIUM 140 133 - 146 mmol/L [facility] POTASSIUM 4.6 3.3 - 5.1 mmol/L [facility] CHLORIDE 105 96 - 108 mmol/L [facility] CO2 25 21 - 35 mmol/L [facility] BUN 12 6 - 19 mg/dL [facility] CREATININE 0.90 0.5 - 1.5 mg/dL [facility] GLUCOSE 98 70 - 99 mg/dL [facility] ALBUMIN 4.1 3.9 - 4.8 g/dL [facility] TOTAL PROTEIN 7.6 6.5 - 8.0 g/dL [facility] CALCIUM 9.4 8.4 - 10.3 mg/dL [facility] ALKALINE PHOSPHATASE 78 39 - 117 U/L [facility] TOTAL BILIRUBIN 0.6 0.0 - 1.2 mg/dL [facility] AST 29 0 - 37 U/L [facility] ALT 29 0 - 40 U/L [facility] GLOBULIN 3.5 1 - 4.8 g/dL [facility] EGFR 98 >59 mL/min/1.7 3m2 [facility] Comment:Estimated glomerular filtration rate calculated using the CKD-EPI refit equation. ANION GAP 15 10 - 20 mmol/L [facility] Blood 10/03/2024 8:43 AM EDT 10/03/2024 8:45 AM EDT us Venu Lr MD LAB BLOOD ORDERABLES Final Re sult [facility] [address] [place] [address] * (ABNORMAL) CBC and differential (10/03/2024 8:43 AM EDT) WBC 8.49 4.00 - 11.00 K/uL [facility] RBC 4.71 4.50 - 5.90 M/uL [facility] HGB 15.6 13.5 - 17.5 g/dL [facility] HCT 46.3 41.0 - 53.0 % [facility] PLT 246 150 - 450 K/uL [facility] MCV 98.3 80.0 - 100.0 fL [facility] MCH 33.1(H) 27.0 - 31.0 pg [facility] MCHC 33.7 32.0 - 36.0 g/dL [facility] RDW 12.5 11.5 - 14.5 % [facility] MPV 10.4 8.4 - 12.0 fL [facility] NRBC 0.00 0.00 /100 WBCs [facility] ABSOLUTE NRBC 0.00 0.00 K/uL [facility] DIFF METHOD Auto [facility] NEUTS 57.5 48.0 - 76.0 % [facility] LYMPHS 24.7 18.0 - 41.0 % [facility] MONOS 13.7(H) 4.0 - 11.0 % [facility] EOS 2.7 0.0 - 5.0 % [facility] BASOS 0.8 0.0 - 1.5 % [facility] Granulocytes, immature (%) 0.6 0.0 - 0.9 % [facility] ABSOLUTE NEUTS 4.88 1.92 - 7.60 K/uL [facility] ABSOLUTE LYMPHS 2.10 0.72 - 4.10 K/uL [facility] ABSOLUTE MONOS 1.16(H) 0.16 - 1.10 K/uL [facility] ABSOLUTE EOS 0.23 0.00 - 0.50 K/uL [facility] ABSOLUTE BASOS 0.07 0.00 - 0.15 K/uL [facility] Granulocytes, immature 0.05 0.00 - 0.09 K/uL [facility] Blood 10/03/2024 8:43 AM EDT 10/03/2024 8:45 AM EDT us Venu Lr MD LAB BLOOD ORDERABLES Final Re sult Performing Organization Address City/[facility]/ZIP Co de Phone Number [address] [address] * C-Reactive Protein (10/03/2024 8:43 AM EDT) Only the most recent of2 resultswithin the time period is included. C REACTIVE PROTEIN <3.0 0.0 - 4.0 mg/L [facility] Blood 10/03/2024 8:43 AM EDT 10/03/2024 8:45 AM EDT Venu Lr MD LAB BLOOD ORDERABLES Final Re sult Performing Organization Address [facility] Co de Phone Number [address] [address] * (ABNORMAL) Uric acid (10/03/2024 8:43 AM EDT) Only the most recent of2 resultswithin the time period is included. URIC ACID 7.8(H) 2.4 - 7.0 mg/dL [facility] Blood 10/03/2024 8:43 AM EDT 10/03/2024 8:45 AM EDT us Venu Lr MD LAB BLOOD ORDERABLES Final Re sult Performing Organization Address City/[facility] Co de Phone Number [address] [address] * Hemoglobin A1c (10/03/2024 8:43 AM EDT) HEMOGLOBIN A1C 5.2 4.3 - 5.8 % [facility] Blood 10/03/2024 8:43 AM EDT 10/03/2024 8:46 AM EDT us Venu Lr MD LAB BLOOD ORDERABLES Final Re sult Performing Organization Address [facility] Co de Phone Number [facility] [address] [place] [address] * Ehrlichia/anaplasma PCR (07/20/2024 7:54 AM EDT) ANAPLASMA PHAGOCYTO Negative Negative [facility] DPT OF LAB MED AND PAT+ EHRLICHIA CHAFFEENS Negative Negative [facility] DPT OF LAB MED AND PAT+ EHRL EWINGII/CANIS Negative Negative [facility] DPT OF LAB MED AND PAT+ EHRL MURIS-LIKE Negative Negative [facility] DPT OF LAB MED AND PAT+ Comment: (NOTE) ADDITIONAL INFORMATION This test was developed and its performance characteristics determined by [facility] in a manner consistent with CLIA requirements. This test has not been cleared or approved by the U.S. Food and Drug Administration. Blood 07/20/2024 7:54 AM EDT 07/20/2024 7:58 AM EDT us Venu Lr MD LAB BLOOD ORDERABLES Final Re sult Performing Organization Address City/[facility]/ZIP Co de Phone Number [facility] DPT OF LAB MED AND PAT+ [address] [place] [address] * CCP IgG antibodies (07/20/2024 7:54 AM EDT) ANTI-CCP IGG <8 0 - 16 U/mL [facility] Blood 07/20/2024 7:54 AM EDT 07/20/2024 7:58 AM EDT us Venu Lr MD LAB BLOOD ORDERABLES Final Re sult [facility] [address] [place] [address] * Sedimentation rate (ESR) (07/20/2024 7:54 AM EDT) ESR 11 0 - 20 mm/h [facility] Blood 07/20/2024 7:54 AM EDT 07/20/2024 7:58 AM EDT us Venu Lr MD LAB BLOOD ORDERABLES Final Re sult Performing Organization Address City/[facility]/ZIP Co de Phone Number [address] [address] * Rheumatoid factor (07/20/2024 7:54 AM EDT) Pathologist [facility] RHEUMATOID FACTOR <10.0 0.0 - 14.0 IU/ml [facility] Blood 07/20/2024 7:54 AM EDT 07/20/2024 7:58 AM EDT us Venu Lr MD LAB BLOOD ORDERABLES Final Re sult Performing Organization Address [facility] Co de Phone Number [address] [address] * Antinuclear antibody (SHAMIKA) (07/20/2024 7:54 AM EDT) SHAMIKA SCREEN ON HEP 2 Negative Negative [facility] Blood 07/20/2024 7:54 AM EDT 07/20/2024 7:58 AM EDT us Venu Lr MD LAB BLOOD ORDERABLES Final Re sult Performing Organization Address [facility] Co de Phone Number [address] [address] * (ABNORMAL) Lipid panel (07/05/2024 9:02 AM EDT) Pathologist [facility] HDL 52 mg/dL [facility] Comment: [...] RISK RATIO 2.6(L) 3.4 - 5.0 C [facility] Blood 07/05/2024 9:02 AM EDT 07/05/2024 9:06 AM EDT Result [facility] Venu Lr MD LAB BLOOD ORDERABLES Final [facility] [address] [place] [address] * COLONOSCOPY FOR RESULT ENTRY ONLY (05/16/2022) Result [facility] Venu Lr MD HEALTH MAINTENANCE Edited Res ult - Final * (ABNORMAL) Outside Glucose,Fasting (02/25/2016) Glucose, fasting - External 102(A) 65 - 99 mg/dL Result [facility] Historical Provider LAB BLOOD ORDERABLES Aria l Result * Outside Hepatitis C Virus Screening (10/26/2012) Hepatitis C Screening - External Neg Result [facility] Historical Provider LAB BLOOD ORDERABLES Raia l Result from Last 3 Months or Most Recently Relevant to Health Maintenance Insurance BLUE CROSS OUT OF STATE PPO CROSS OUT OF [facility] PPO BLUE CROSS OUT OF STATE PPO CROSS OUT OF STATE PPO OUT [facility] PPO BLUE CROSS OUT OF STATE PPO Care Teams Shortage Worker Relationship Specialty Start Date End Date Venu Lr MD [address] [place] [address] [email or web address] PCP - General 12/04/16 Stephanie Mijares PA-C [address] [place] [address] [email or web address] Physician Program Checker Hematology 08/21/23 Additional Source Comments The information contained in this document represents components of the legal health record. It is not the complete legal health record.[facility]
--- OUTSIDE RECORDS SUMMARY | 2024-10-11 08:04 | XMS_ITS | Encounter Summary ---
Author Organization [facility] Address [address] [place] [address] Phone Care Team Providers Care Aircraft Mechanic Electrical And [employer] Name Role Phone Venu Lr MD Primary Care Provider [phone] Stephanie Mijares PA-C Unavailable [phone] Encounter Details Date Type Department Care Team (Late st Contact Info) Description 12/11/2018 Procedure Pass [address] [place] [address] Social History Tobacco Use Types Packs/Day Years Used Date Smoking Tobacco: Former Cigarettes 0.5 15 1 8 - 2002 Smokeless Tobacco: Never Alcohol Use Standard Drinks/Week Comments Yes 6 (1 standard drink = 0.6 oz pur e alcohol) 3-4 drinks, Beer, 2 x week Sex and Gender Information Value Date Recorded Sex Assigned at Not on file Legal Sex Male 9:42 PM EDT Gender Identity Not on file Sexual Orientation Not on file documented as of this encounter Plan of Treatment Upcoming Encounters Date Type Department Care Team (Late st Contact Info) Description 03/24/2025 9:30 AM EST Office Visit [facility] Internal Medicine [address] [place], [place] [phone] Venu Lr MD [address] [place] [address] [email or web address] documented as of this encounter Visit Diagnoses Not on filedocumented in this encounter Additional Health Concerns Infection Onset Date Last Indicated Resolved Time CoV-Presumed 06/17/2021 06/17/2021 07/08/2021 1:21 AM EDT Assessment Noted Time PHQ-2 Depression Total Score: 0 04/30/19 9:31 AM EDT documented as of this encounter Care Teams Aircraft Mechanic Electrical And Radio Relationship Specialty Start Date End Date Venu Lr MD [address] [place] [address] [email or web address] PCP - General 12/04/16 Stephanie Mijares PA-C [address] [place] [address] Physician Physiotherapist'S Assistant Hematology 08/21/23 documented as of this encounter Additional Source Comments The information contained in this document represents components of the legal health record. It is not the complete legal health record.[facility]
--- OUTSIDE RECORDS SUMMARY | 2024-10-11 08:04 | XMS_ITS | Encounter Summary ---
Author Organization [facility] Address [address] [place] [address] Phone Care Team Providers Care Pawn Broker Name Role Phone Venu Lr MD Primary Care Provider [phone] Stephanie Mijares PA-C Unavailable [phone] Encounter Details Date Type Department Care Team (Late st Contact Info) Description 10/03/2024 Orders Only [facility] Medical [facility] Internal Medicine [address] [place] [address] Provider, MD Yue [address] [place] [address] Social History Tobacco Use Types Packs/Day Years Used Date Smoking Tobacco: Former Cigarettes 0.5 23 1 980 - 2003 Smokeless Tobacco: Never Alcohol Use Standard Drinks/Week [...] high school, GED, job training, learning the [place] language, technical skills, or developing parenting skills)? [...] Description 03/24/2025 9:30 AM EST Office Visit [facility] Internal Medicine [address] [place] [address] Venu Lr MD [address] [place] [address] documented as of this encounter Procedures Procedure Name Priority Date/Time Associated Diagnosis Comments OUTSIDE IMAGING Routine 10/03/2024 2:11 PM EDT documented in this encounter Results * Outside Imaging Report Only (10/03/2024 2:11 PM EDT) us Historical Provider MD BONILLA XR CHEST Final Res ult documented in this encounter Visit Diagnoses Not on filedocumented in this encounter Additional Health Concerns Assessment Noted Time PHQ-2 Depression Total Score: 0 01/18/20 24 8:25 PM EST documented as of this encounter Care Teams Pawn Broker Relationship Specialty Start Date End Date Venu Lr MD [address] [place] [address] PCP - General 12/04/16 Stephanie Mijares PA-C [address] [place] [address] Physician Pmp Certified Project Manager Hematology 08/21/23 documented as of this encounter Additional Source Comments The information contained in this document represents components of the legal health record. It is not the complete legal health record.[facility]
--- OUTSIDE RECORDS SUMMARY | 2024-10-11 08:04 | XMS_ITS | Patient Health Record ---
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 Problem Pain in limb (06257862) Pain in Limb (729.5) Active confirmed Plan Of Treatment Pending Test Test Name Order Date X ray : Foot, right 2V 06/09/2013 X ray : Foot, right 2V 05/30/2013 X ray : Foot, right 3V 06/14/2012 Insurance Providers Payer Name Payer Address Payer Phone Subscriber Number Group Number Insured Name Patient Relationship to Insured Coverage Start Date Coverage End Date [facility] Others [address] [place] [address] [id number] Minh Houser Self - patient is the insured Medical (General) History Medical History History ICD Code cholesterol Surgical History Surgery Date(Month/Year) HT right 4&5 05/25/2013
== END ==
LOC: HO.CARD 08:02
PROVIDERS: PCP Internal Medicine; Visit Provider Internal Medicine Cardiovascular Disease
DX: I48.19 Other persistent atrial fibrillation (principal)
CPT/HCPCS: 93242

== ENCOUNTER → 2024-10-11 08:04 | Outpatient (BNV) | payer BC, SELFPAY | PROVIDERS: PCP Internal Medicine; Visit Provider Internal Medicine Cardiovascular Disease | DX: I48.91 Unspecified atrial fibrillation (principal) | CPT/HCPCS: 93244 ==

== ENCOUNTER 2024-10-18 14:47 | Outpatient (AMB) | payer BC, SELFPAY ==
--- NOTE | 2024-10-18 15:00 | A.OFFVIS_ITS ---
Vital Signs 10/18/24 15:02 Height 6 ft Weight 207 lb 3.752 oz BMI 28.1 BP 116/76 Blood Pressure Location Lt brachial Position Sitting Pulse 121 H Intake Visit Reasons: 4 wk f/up cvr Intake Note: 4 week follow-up CVR with ekg feeling good Waiter/Waitress Room Service Required: No Allergies latex (LATEX) Allergy (Unknown, Verified 09/28/24 13:16) CONTACT DERMITITIS Medication List - Last Reconciled 10/18/24 by Thierry Aguilar MD apixaban (Eliquis) 5 mg PO BID atorvastatin (Lipitor) 40 mg PO BEDTIME dronedarone (Multaq) 400 mg PO BID mecobalamin (vitamin B12) 500 mcg PO DAILY metoprolol succinate ER (Toprol XL) 50 mg (1/2 x 100 mg) PO DAILY Held on 09/19/24. Instructions: Doctor's Order HPI Comments Details: Minh comes for follow-up after recent cardioversion. He has been taking his Multaq regularly. Notice that his heart might not be in normal rhythm but he is not sure. He does have symptoms exertional shortness of breath and fatigue. He uses CPAP regularly. Has been taking his oral anticoagulation with Eliquis 5 mg b.i.d. regularly. He said he still drinks couple of beers on his days off which is 3 out of the 7 days. He denies any heavy alcohol use. Denies any lightheadedness, syncope. Denies any orthopnea, PND, leg edema. Denies any exertional chest pain. [facility] Medical History Paroxysmal atrial fibrillation Syncope Murmur Sleep apnea Surgical History Hx of foot surgery Hx of colonoscopy Family History Father HTN (hypertension) Mother No problems noted. Social History Are you a primary healthcare account manager to a significant other at home: No Do you presently have visiting nurse or other home services: No Patient Tobacco Use Status: Former Tobacco user Tobacco use type: Cigarette Review of Systems Const Denies chills, Denies fatigue, Denies fever(s), Denies frequent falls, Denies weakness, Denies weight gain and Denies weight loss ENT Denies dizziness Card Denies chest pain, Denies leg edema, Denies lightheadedness, Denies palpitations, Denies dyspnea, Denies dyspnea on exertion, Denies orthopnea and Denies other (loss of consciousness) Resp Denies cough, Denies dyspnea and Denies dyspnea on exertion GI Denies hematochezia and Denies change in stool character Musc Denies abnormal gait, Denies muscle weakness, Denies numbness, Denies radiating pain into limb and Denies tingling Neuro Denies Abnormal speech present, Denies abnormal gait, Denies dizziness, Denies frequent falls, Denies numbness, Denies tingling and Denies weakness Endo Denies fatigue and Denies palpitations Physical Exam Vital Signs: Last Vital Signs Pulse 121 H 10/18/24 15:02 BP 116/76 10/18/24 15:02 BMI result Body Mass Index 28.1 Const General: cooperative, comfortable, no acute distress, alert, awake and Physically active Nutritional Appearance: average body habitus Orientation/consciousness: patient oriented x3 Limitations: no limitations HEENT Head: Yes normocephalic and Yes atraumatic Neck Neck: Yes trachea midline, Yes supple and Yes no JVD Resp Effort & Inspection: normal respiratory effort Auscultation: clear to auscultation bilaterally Cardio Jugular venous distension: no JVD Palpation: normal PMI Rate: tachycardic Rhythm: abnormal rhythm irregularly irregular Heart sounds: S1 normal heart sound present, S2 normal heart sound present, no click, no gallops, no murmurs and no rubs GI Auscultation: normal bowel sounds Skin General skin exam: no rashes or lesions noted Neuro General: patient oriented x3 and no focal motor deficits Speech: No Abnormal speech present Extrem General: Yes no clubbing, cyanosis or edema Psych Appearance: grossly normal Office Procedures EKG Details: EKG shows atrial fibrillation with rapid ventricular response at 121 beats per minute [id number], Complete Assessment & Plan Assessment & Plan (1) Persistent atrial fibrillation: Code(s): I48.19 - Other persistent atrial fibrillation Category: Medical Plan: Persistent recurrent atrial fibrillation with symptoms with mildly reduced LV ejection fraction. Multaq has failed to maintain rhythm. Switch him to amiodarone therapy with loading at 400 mg b.i.d. for 2 weeks followed by 200 mg daily followed by synchronized cardioversion if he remains in atrial fibrillation at the end of it. This is to reduce risk of future development of further heart failure syndrome as well as cardiomyopathy process. If he maintains rhythm on amiodarone has improvement in his symptoms and ejection fraction will refer him to EPS for ablation. This was discussed with him. Continue full oral anticoagulation with apixaban. Avoidance of alcohol use was discussed. Continue CPAP therapy. Discussed with him about the need for cardioversion including risks, benefits, alternatives. He understands agrees. Will follow up in the clinic in 6 weeks time, sooner p.r.n.. Thank you for allowing me to partake in his care Orders: Orders XR chest 2V Today I48.19 - Other persistent atrial fibrillation Complete Blood Count no Diff Today I48.19 - Other persistent atrial fibrillation B Type Natriuretic Peptide Today I48.19 - Other persistent atrial fibrillation TSH reflex Free T4 Today I48.19 - Other persistent atrial fibrillation Basic Metabolic Panel Today I48.19 - Other persistent atrial fibrillation Liver Panel Today I48.19 - Other persistent atrial fibrillation Medications: New amiodarone 400 mg PO BID 30 tabs 0RF amiodarone Start after weeks of loading 400 mg b.i.d. 200 mg PO DAILY 30 tabs 5RF Discontinued dronedarone (Multaq) must administer with a meal/food Discontinued Reason: Doctor's Order 400 mg PO BID 60 tabs 3RF Coding Level of Care Code Est Pt Level 4 (01948) Complex EM visit Add On G2211 Diagnoses Persistent atrial fibrillation I48.19 CPT Codes EKG - CPT: 86963-[id number], Complete ([id number])
[2024-10-18 15:02] VITALS: BP 116/76; PULSE 121; BMI 28.1
--- OUTSIDE RECORDS SUMMARY | 2024-10-18 15:59 | XMS_ITS | Encounter Summary ---
Author Organization [facility] Address [address] [place] [address] Phone Care Team Providers Care Toilet And Laundry Soap Supervisor Name Role Phone Venu Lr MD Primary Care Provider [phone] Stephanie Mijares PA-C Unavailable [phone] Encounter Details Date Type Department Care Team (Late st Contact Info) Description 10/03/2024 Orders Only [facility] Medical [facility] Internal Medicine [address] [place] [address] Provider, MD Yue [address] [place] [address] Social History Tobacco Use Types Packs/Day [...] high school, GED, job training, learning the Kyrgyz language, technical skills, or developing parenting skills)? [...] Description 03/24/2025 9:30 AM EST Office Visit [facility] Internal Medicine [address] [place] [address] Venu Lr MD [address] [place] [address] documented as of this encounter Procedures Procedure [...] documented as of this encounter Care Teams Toilet And Laundry Soap Supervisor Relationship Specialty Start Date End Date Venu Lr MD [address] [place] [address] PCP - General 12/04/16 Stephanie Mijares PA-C [address] [place] [address] Physician Supervisor Data Processing Hematology 08/21/23 documented as of this encounter Additional Source Comments The information contained in this document represents components of the legal health record. It is not the complete legal health record.[facility]
--- OUTSIDE RECORDS SUMMARY | 2024-10-18 15:59 | XMS_ITS | Clinical Summary ---
Author Organization [facility] Address [address] [place] [address] Phone Care Team Providers Care Fruit Farmworker Name Role Phone Venu Lr MD Primary Care Provider Stephanie Mijares PA-C Unavailable [phone] Allergies Active Allergy Reactions Criticality Noted Date [...] Encounter [facility] [address] [place] [address] Venu Lr MD Discharge Disposition: Home or Self Care 10/03/2024 8:00 AM EDT Office Visit [facility] Internal Medicine [address] [place] [address] Venu Lr MD Paroxysmal A-fib (Primary Dx); Tick bite of right lower leg, initial encounter; Encounter for monitoring direct oral anticoagulant therapy; Elevated uric acid in blood; Pure hypercholesterolemia; Impaired fasting glucose 10/03/2024 Orders Only [facility] Internal Medicine [address] [place] [address] ProviderYue MD 08/17/2024 Refill [facility] Internal Medicine [address] [place] [address] Venu Lr MD Medication Refill 07/20/2024 7:53 AM EDT - 07/20/2024 11:59 PM EDT Hospital Encounter [facility] [address] [place] [address] Venu Lr MD Discharge Disposition: Home or Self Care 07/19/2024 Telephone [facility] Internal Medicine [address] [place] [address] Venu Lr MD right ankle pain from [...] high school, GED, job training, learning the Palestinian language, technical skills, or developing parenting skills)? [...] Description 03/24/2025 9:30 AM EST Office Visit [facility] Internal Medicine [address] [place] [address] Venu Lr MD [address] [place] [address] [email or web address] Health Maintenance Due Date Last Done Comments COLOGUARD 11/07/2008 FIT TEST 11/07/2008 FOBT 11/07/2008 SIGMOIDOSCOPY 11/07/2008 VIRTUAL COLONOSCOPY 11/07/2008 PNEUMOCOCCAL VACCINES (50+ years) (1 of 1 - PCV) 11/07/2013 ZOSTER VACCINES (1 of 2) 11/07/2013 RSV VACCINE (1 - Risk 60-74 years 1-dose series) 2023 INFLUENZA VACCINE (#1) 2024 COVID-19 VACCINE (3 - 2024- season) 2024 08/14/2020, 07/20/2020 DEPRESSION SCREENING 01/17/2025 01/18/2024 BLOOD PRESSURE 04/05/2025 [...] is included. Lyme AB IgG Negative Negative [facility] Lyme AB IgM Negative Negative [facility] Blood 10/03/2024 8:43 AM EDT 10/03/2024 8:45 AM EDT us Venu Lr MD LAB BLOOD ORDERABLES Final Re sult [facility] [address], [place] [id number] * Comprehensive metabolic panel (10/03/2024 8:43 AM EDT) Only the most recent of2 resultswithin the time period is included. SODIUM 140 133 - 146 mmol/L [facility] POTASSIUM 4.6 3.3 - 5.1 mmol/L [facility] CHLORIDE 105 96 - 108 mmol/L [facility] CO2 25 21 - 35 mmol/L [facility] BUN 12 6 - 19 mg/dL [facility] CREATININE 0.90 0.5 - 1.5 mg/dL [facility] GLUCOSE 98 70 - 99 mg/dL [facility] ALBUMIN 4.1 3.9 - 4.8 g/dL [facility] TOTAL PROTEIN 7.6 6.5 - 8.0 g/dL [facility] CALCIUM 9.4 8.4 - 10.3 mg/dL [facility] ALKALINE PHOSPHATASE 78 39 - 117 U/L [facility] TOTAL BILIRUBIN 0.6 0.0 - 1.2 mg/dL [facility] AST 29 0 - 37 U/L [facility] ALT 29 0 - 40 U/L [facility] GLOBULIN 3.5 1 - 4.8 g/dL [facility] EGFR 98 >59 mL/min/1.7 3m2 [facility] Comment:Estimated glomerular filtration rate calculated using the CKD-EPI refit equation. ANION GAP 15 10 - 20 mmol/L [facility] Blood 10/03/2024 8:43 AM EDT 10/03/2024 8:45 AM EDT us Venu Lr MD LAB BLOOD ORDERABLES Final Re sult [facility] [address] [place] [address] * (ABNORMAL) CBC and differential (10/03/2024 8:43 AM EDT) WBC 8.49 4.00 - 11.00 K/uL [facility] RBC 4.71 4.50 - 5.90 M/uL [facility] HGB 15.6 13.5 - 17.5 g/dL [facility] HCT 46.3 41.0 - 53.0 % [facility] PLT 246 150 - 450 K/uL [facility] MCV 98.3 80.0 - 100.0 fL [facility] MCH 33.1(H) 27.0 - 31.0 pg [facility] MCHC 33.7 32.0 - 36.0 g/dL [facility] RDW 12.5 11.5 - 14.5 % [facility] MPV 10.4 8.4 - 12.0 fL [facility] NRBC 0.00 0.00 /100 WBCs [facility] ABSOLUTE NRBC 0.00 0.00 K/uL [facility] DIFF METHOD Auto [facility] NEUTS 57.5 48.0 - 76.0 % [facility] LYMPHS 24.7 18.0 - 41.0 % [facility] MONOS 13.7(H) 4.0 - 11.0 % [facility] EOS 2.7 0.0 - 5.0 % [facility] BASOS 0.8 0.0 - 1.5 % [facility] Granulocytes, immature (%) 0.6 0.0 - 0.9 % [facility] ABSOLUTE NEUTS 4.88 1.92 - 7.60 K/uL [facility] ABSOLUTE LYMPHS 2.10 0.72 - 4.10 K/uL [facility] ABSOLUTE MONOS 1.16(H) 0.16 - 1.10 K/uL [facility] ABSOLUTE EOS 0.23 0.00 - 0.50 K/uL [facility] ABSOLUTE BASOS 0.07 0.00 - 0.15 K/uL [facility] Granulocytes, immature 0.05 0.00 - 0.09 K/uL [facility] Blood 10/03/2024 8:43 AM EDT 10/03/2024 8:45 AM EDT us Venu Lr MD LAB BLOOD ORDERABLES Final Re sult [address] [address] * C-Reactive Protein (10/03/2024 8:43 AM EDT) Only the most recent of2 resultswithin the time period is included. C REACTIVE PROTEIN <3.0 0.0 - 4.0 mg/L [facility] Blood 10/03/2024 8:43 AM EDT 10/03/2024 8:45 AM EDT us Venu Lr MD LAB BLOOD ORDERABLES Final Re sult Performing Organization Address [facility] Co de Phone Number [address] [address] * (ABNORMAL) Uric acid (10/03/2024 8:43 AM EDT) Only the most recent of2 resultswithin the time period is included. URIC ACID 7.8(H) 2.4 - 7.0 mg/dL [facility] Blood 10/03/2024 8:43 AM EDT 10/03/2024 8:45 AM EDT us Venu Lr MD LAB BLOOD ORDERABLES Final Re sult Performing Organization Address City/[facility]/ZIP Co de Phone Number [address] [address] * Hemoglobin A1c (10/03/2024 8:43 AM EDT) HEMOGLOBIN A1C 5.2 4.3 - 5.8 % [facility] Blood 10/03/2024 8:43 AM EDT 10/03/2024 8:46 AM EDT us Venu Lr MD LAB BLOOD ORDERABLES Final Re sult [facility] [address] [place] [address] * Ehrlichia/anaplasma PCR (07/20/2024 7:54 AM EDT) ANAPLASMA PHAGOCYTO Negative Negative [facility] DPT OF LAB MED AND PAT+ EHRLICHIA CHAFFEENS Negative Negative [facility] DPT OF LAB MED AND PAT+ EHRL EWINGII/CANIS Negative Negative [facility] DPT OF LAB MED AND PAT+ EHRL MURIS-LIKE Negative Negative [facility] DPT OF LAB MED AND PAT+ Comment: (NOTE) ADDITIONAL INFORMATION This test was developed and its performance characteristics determined by [facility] in a manner consistent with CLIA requirements. This test has not been cleared or approved by the U.S. Food and Drug Administration. Blood 07/20/2024 7:54 AM EDT 07/20/2024 7:58 AM EDT us Venu Lr MD LAB BLOOD ORDERABLES Final Re sult [facility] DPT OF LAB MED AND PAT+ [address] [place] [address] * CCP IgG antibodies (07/20/2024 7:54 AM EDT) ANTI-CCP IGG <8 0 - 16 U/mL [facility] Blood 07/20/2024 7:54 AM EDT 07/20/2024 7:58 AM EDT us Venu Lr MD LAB BLOOD ORDERABLES Final Re sult [address] [address] * Sedimentation rate (ESR) (07/20/2024 7:54 AM EDT) ESR 11 0 - 20 mm/h [facility] Blood 07/20/2024 7:54 AM EDT 07/20/2024 7:58 AM EDT us Venu Lr MD LAB BLOOD ORDERABLES Final Re sult Performing Organization Address [facility]/ZIP Co de Phone Number [address] [address] * Rheumatoid factor (07/20/2024 7:54 AM EDT) Pathologist [facility] RHEUMATOID FACTOR <10.0 0.0 - 14.0 IU/ml [facility] Blood 07/20/2024 7:54 AM EDT 07/20/2024 7:58 AM EDT Venu Lr MD LAB BLOOD ORDERABLES Final Re sult Performing Organization Address [facility]/ZIP Co de Phone Number [address] [address] * Antinuclear antibody (SHAMIKA) (07/20/2024 7:54 AM EDT) Pathologist [facility] SHAMIKA SCREEN ON HEP 2 Negative Negative [facility] Blood 07/20/2024 7:54 AM EDT 07/20/2024 7:58 AM EDT us Venu Lr MD LAB BLOOD ORDERABLES Final Re sult Performing Organization Address [facility]/ZIP Co de Phone Number [address] [address] * (ABNORMAL) Lipid panel (07/05/2024 9:02 AM EDT) Pathologist [facility] HDL 52 mg/dL [facility] Comment: Interpretation <40 mg/dL: Low HDL cholesterol (major risk factor for CHD) Greater than or equal to 60 mg/dL: High HDL cholesterol ( negative risk factor for CHD) HDL - cholesterol is affected by a number of factors, e.g. smoking, excerise, hormones, sex and age. CHOLESTEROL 134 0 - 240 mg/dL [facility] TRIGLYCERIDES 121 30 - 160 mg/dL [facility] LDL 58 50 - 129 mg/dL [facility] Comment: LDL levels in terms of risk for coronary heart disease: <100 mg/dL: Optimal 100-129 mg/dL: Near or above optimal 130-159 mg/dL: Borderline high 160-189 mg/dL: High >190 mg/dL: Very High CARDIAC RISK RATIO 2.6(L) 3.4 - 5.0 C [facility] Blood 07/05/2024 9:02 AM EDT 07/05/2024 9:06 AM EDT Venu Lr MD LAB BLOOD ORDERABLES Final Re sult [facility] [address] [place] [address] * COLONOSCOPY FOR RESULT ENTRY ONLY (05/16/2022) Venu rL MD HEALTH MAINTENANCE Edited Res ult - Final * (ABNORMAL) Outside Glucose,Fasting (02/25/2016) [facility] Glucose, fasting - External 102(A) 65 - 99 mg/dL Result [facility] Historical Provider LAB BLOOD ORDERABLES Aria l Result * Outside Hepatitis C Virus Screening (10/26/2012) [facility] Hepatitis C Screening - External Neg Result [facility] Historical Provider LAB BLOOD ORDERABLES Aria l Result from Last 3 Months or Most Recently Relevant to Health Maintenance Insurance BLUE CROSS OUT OF STATE PPO BLUE CROSS OUT OF STATE PPO BLUE CROSS OUT OF STATE PPO CROSS OUT OF STATE PPO OUT [facility] PPO BLUE [place] OUT OF STATE PPO Care Teams Fruit Farmworker Relationship Specialty Start Date End Date Venu Lr MD [address] [place] [address] PCP - General 12/04/16 Stephanie Mijares PA-C [address] [place] [address] Physician Wire Winding Machine Tender Hematology 08/21/23 Additional Source Comments The information contained in this document represents components of the legal health record. It is not the complete legal health record.[facility]
--- OUTSIDE RECORDS SUMMARY | 2024-10-18 15:59 | XMS_ITS | Encounter Summary ---
Author Organization [facility] Address [address] [facility] [address] [place] [address] Phone Care Team Providers Care Circulation Assistant Name Role Phone Venu Lr MD Primary Care Provider [phone] Stephanie Mijares PA-C Unavailable [phone] Encounter Details Date Type Department Care Team (Late st Contact Info) Description 12/11/2018 Procedure Pass [address] [place] [address] Social History Tobacco Use Types Packs/Day Years [...] Description 03/24/2025 9:30 AM EST Office Visit [facility] Internal Medicine [address] [place], [place] [phone] Venu Lr MD [address] [place] [address] [email or web address] documented as of this encounter Visit Diagnoses Not on filedocumented in this encounter Additional Health Concerns Infection Onset Date Last Indicated Resolved Time CoV-Presumed 06/17/2021 06/17/2021 07/08/2021 1:21 AM EDT Assessment Noted Time PHQ-2 Depression Total Score: 0 04/30/19 9:31 AM EDT documented as of this encounter Care Teams Circulation Assistant Relationship Specialty Start Date End Date Venu Lr MD [address] [place] [address] [email or web address] PCP - General 12/04/16 Stephanie Mijares PA-C [address] [place] [address] Physician Electric Meter Tester Helper Hematology 08/21/23 documented as of this encounter Additional Source Comments The information contained in this document represents components of the legal health record. It is not the complete legal health record.[facility]
== END 2024-10-18 15:28 | disposition home or self-care (01) ==
LOC: HO.HCS 14:47
PROVIDERS: PCP Internal Medicine; Visit Provider Internal Medicine Cardiovascular Disease
DX: I48.19 Other persistent atrial fibrillation (principal)
CPT/HCPCS: 93010; 99214

== ENCOUNTER 2024-10-18 14:47 | Outpatient (REF) | payer BC, SELFPAY ==
--- NOTE | ~2024-10-18 | XR_ITS ---
EXAMINATION: XR CHEST CLINICAL INFORMATION: I48.19 - Other persistent atrial fibrillation COMPARISON: None available. TECHNIQUE: 2 views of the chest were obtained. FINDINGS: The cardiac, hilar, and mediastinal contours are normal. The lungs are clear bilaterally. There is no pneumothorax or pleural effusion. There is no focal osseous or soft tissue abnormality. There are cervical fusion device is noted. There are mild degenerative changes throughout the spine. XR/XR chest 2V IMPRESSION: No active pulmonary disease. Electronically signed by: Barry Martinez MD 10/18/2024 04:51 PM EDT
[2024-10-18 16:30] LABS: Hematocrit 43.2 % (42.0-52.0); Hemoglobin 14.8 g/dl (14.0-18.0); Mean Corpuscular HGB Conc 34.3 g/dl (31.0-36.0); Mean Corpuscular Hemoglobin 32.7 pg (27.0-33.0); Mean Corpuscular Volume 95.6 fL (80.0-98.0); NRBC Abs Auto 0.000 X10*3/uL (0.0-0.012); NRBC Pct Auto 0.0 /100WBC (0.0-0.2); Platelet Count 263 X10*3/uL (160-400); Red Blood Count 4.52 X10*6/uL (4.60-5.80); White Blood Count 10.7 X10*3/uL (4.8-10.8)
[2024-10-18 16:47] LABS: B Type Natriuretic Peptide 67 pg/mL (<100)
[2024-10-18 18:06] LABS: Alanine Aminotransferase 38 U/L (0-40); Albumin Level 3.9 g/dL (3.5-5.0); Alkaline Phosphatase 78 U/L (39-117); Anion Gap 14 (12-20); Aspartate Amino Transferase 34 U/L (5-37); Blood Urea Nitrogen 15 mg/dL (9-16); Calcium 8.9 mg/dL (8.4-10.2); Carbon Dioxide 26 mmol/L (22-29); Chloride 107 mmol/L (96-108); Estimated Glomerular Filt Rate > 60; Potassium 4.2 mmol/L (3.3-5.1); Sodium 143 mmol/L (135-145); Total Protein 7.1 g/dL (6.5-8.0)
== END 2024-10-18 14:48 | disposition home or self-care (01) ==
LOC: HO.XRAY 14:47
PROVIDERS: PCP Internal Medicine; Visit Provider Internal Medicine Cardiovascular Disease
DX: I48.19 Other persistent atrial fibrillation (principal); R06.02 Shortness of breath; Z79.01 Long term (current) use of anticoagulants; Z79.899 Other long term (current) drug therapy; Z99.89 Dependence on other enabling machines and devices
CPT/HCPCS: 36415; 71046; 80048; 80076; 83880; 84443; 85027; 93005

== ENCOUNTER → 2024-10-18 16:21 | Outpatient (BNV) | payer BC, SELFPAY | PROVIDERS: PCP Internal Medicine; Visit Provider Radiology Diagnostic Radiology | DX: R06.02 Shortness of breath (principal) | CPT/HCPCS: 71046 ==

== ENCOUNTER → 2025-01-17 09:52 | Outpatient (REF) | payer BC, SELFPAY ==
--- NOTE | 2025-01-17 09:56 | CA_ITS ---
Transthoracic Echocardiogram Patient (Last, First, Middle): Minh Kerr T Gender: M Date of : 1965 Age: 59 Procedure Date: 01/17/2025 Procedure Type: Transthoracic Echocardiogram Location: OP Height: 182. cm Weight: 85.28 kg BSA: 2.07 m2 Heart Rate: 93 bpm BP: 112 / 70 mmHg Education Counselor: ROCIO Referring MD: Thierry Aguilar MD Symptoms: I42.9 - Cardiomyopathy, unspecified Study Quality: Adequate. Limited per order ECG Rhythm: Atrial Fibrillation Conclusions: - The left ventricular systolic function is mildly decreased. The visually estimated ejection fraction is between 45-50%. Findings Left Ventricle Normal left ventricular cavity size. There is normal left ventricular wall thickness. The left ventricular systolic function is mildly decreased. The visually estimated ejection fraction is between 45-50%. Venous The inferior vena cava is normal in size and collapses greater than 50% with inspiration. Prior Study Comparison No significant change compared to prior study dated: 09/09/2024. Measurements 2D Linear Measurements IVSd: 0.98 0.6-0.9/0.6-1.0 cm LVIDd: 5.26 3.9-5.3/4.2-5.9 cm LVIDd Index: 2.54 2.4-3.2/2.2-3.1 cm/m2 LVIDs: 3.31 2.0-3.6 cm LVPWd: 1.03 0.7-1.1 cm LV Mass: 247.43 67-162/88-224 g LV Mass Index: 119.53 43-95/49-115 g/m2 LVOT Diam: 2.10 3.0+(-)1.3 cm 2D Systolic Function EF 4C: 52.20 >55% EF 2C: 53.90 >55% EF BiP: 53.60 >55% LVOT LVOT Pk John: 0.69 LVOT Mn John: 0.51 LVOT VTI: 0.13 LVOT Pk Grad: 2.00 LVOT Mn Grad: 1.00 LVOT Diam: 2.10 LVOT Area: 3.46 Updated in Other Vendor System with Status of Final Gareth Ruiz MD electronically signed on 01/19/2025 11:23:03 AM with status of Final
--- OUTSIDE RECORDS SUMMARY | 2025-01-17 11:02 | XMS_ITS | Encounter Summary ---
Author Organization [facility] Address [address] [facility] [address] [place] [address] Phone Care Team Providers Care Ride Mechanic Name Role Phone Venu Lr MD Primary Care Provider [phone] Stephanie Mijares PA-C Unavailable [phone] Encounter Details Date Type Department Care Team (Late st Contact Info) Description 12/11/2018 Procedure Pass [address] [place] [address] Social History Tobacco Use Types Packs/Day Years [...] Description 03/24/2025 9:30 AM EST Office Visit [facility] Internal Medicine [address] [place], [place] [phone] Vneu Lr MD [address] [place] [address] [email or web address] documented as of this encounter Visit Diagnoses Not on filedocumented in this encounter Additional Health Concerns Infection Onset Date Last Indicated Resolved Time CoV-Presumed 06/17/2021 06/17/2021 07/08/2021 1:21 AM EDT Assessment Noted Time PHQ-2 Depression Total Score: 0 04/30/19 9:31 AM EDT documented as of this encounter Care Teams Ride Mechanic Relationship Specialty Start Date End Date Venu Lr MD [address] [place] [address] PCP - General 12/04/16 Stephanie Mijares PA-C [address] [place] [address] Physician Assistant Manager Airside Operations Hematology 08/21/23 documented as of this encounter Additional Source Comments The information contained in this document represents components of the legal health record. It is not the complete legal health record.[facility]
--- OUTSIDE RECORDS SUMMARY | 2025-01-17 11:02 | XMS_ITS | Clinical Summary ---
Author Organization [facility] Address [address] [facility] [address] [place] [phone] Phone Care Team Providers Care Excavating Supervisor Name Role Phone Venu Lr MD Primary Care Provider [phone] Stephanie Mijares PA-C Unavailable [phone] Allergies Active Allergy Reactions Criticality Noted Date [...] Encounters Date Type Department Care Team Description 11/11/2024 Refill [facility] [address] [place] [address] Venu Lr MD Medication Refill (Atorvastatin ) 10/19/2024 Orders Only [facility] [address] [place] [address] Provider, MD Yue from Last 3 Months Immunizations Immunization Administration [...] high school, GED, job training, learning the [place] language, technical skills, or developing parenting skills)? [...] your housing situation today? I have reilly mary 01/18/2024 How many times have you move [...] Description 03/24/2025 9:30 AM EST Office Visit [facility] [address] [facility] [place] [address] Venu Lr MD [address] [place] [id number] [employer] Maintenance Due Date Last Done Comments COLOGUARD 11/07/2008 FIT TEST 11/07/2008 FOBT 11/07/2008 SIGMOIDOSCOPY 11/07/2008 VIRTUAL COLONOSCOPY 11/07/2008 PNEUMOCOCCAL VACCINES (50+ years) (1 of 1 - PCV) 11/07/2013 ZOSTER VACCINES (1 of 2) 11/07/2013 INFLUENZA VACCINE (#1) 2024 COVID-19 VACCINE (3 - season) 2024 08/14/2020, 07/20/2020 DEPRESSION SCREENING 01/17/2025 01/18/2024 BLOOD PRESSURE 04/05/2025 10/03/2024 CREATININE LEVEL 10/03/2025 10/03/2024, 05/2024, 07/05/2024, Additional history exists COLONOSCOPY 05/17/2027 05/16/2022, 07/02/2016 COLORECTAL CANCER SCREENING 05/17/2027 SCREENING FOR DIABETES 10/04/2027 , 10/03/2024, 02/25/2016 Adult Td,Tdap Booster 04/29/2028 04/29/2018 , 04/17/2017, 06/17/2007 LIPID PANEL 07/05/2029 07/05/2024, 12/0 06/2023, 05/20/2023, Additional history exists RSV VACCINE (1 - 1-dose 75+ series) 11/07/2038 HEPATITIS C SCREENING Completed 10/26/2012 HIV ONE-TIME [...] Name Priority Date/Time Associated Diagnosis Comments OUTSIDE LAB Routine 10/18/2024 3:56 PM EDT OUTSIDE XR CHEST REPORT ONLY Routine 10/18/2024 1:34 PM EDT COMPREHENSIVE METABOLIC PANEL (CMP) Routine 10/03/2024 8:43 AM EDT Pure hypercholesterolemia LIPID PANEL Routine 07/05/2024 9:02 AM EDT Pure hypercholesterolemia HM COLONOSCOPY FOR RESULT ENTRY ONLY Routine 05/16/2022 OUTSIDE GLUCOSE FASTING Routine 02/25/2016 OUTSIDE HEPATITIS C VIRUS SCREENING Routine 10/26/2012 from Last 3 Months or Most Recently Relevant to Health Maintenance Results * Outside Lab (10/18/2024 3:56 PM EDT) us Historical Provider LAB BLOOD BKR ORDERABLES Final Result * Outside XR??Chest Report Only (10/18/2024 1:34 PM EDT) us Historical Provider IMG XR CHEST Final Res ult * Comprehensive metabolic panel (10/03/2024 8:43 AM EDT) SODIUM 140 133 - 146 mmol/L [facility] POTASSIUM 4.6 3.3 - 5.1 mmol/L [facility] CHLORIDE 105 96 - 108 mmol/L [facility] CO2 25 21 - 35 mmol/L [facility] BUN 12 6 - 19 mg/dL [facility] CREATININE 0.90 0.5 - 1.5 mg/dL [facility] GLUCOSE 98 70 - 99 mg/dL [facility] ALBUMIN 4.1 3.9 - 4.8 g/dL [facility] TOTAL PROTEIN 7.6 6.5 - 8.0 g/dL [facility] CALCIUM 9.4 8.4 - 10.3 mg/dL [facility] ALKALINE PHOSPHATASE 78 39 - 117 U/L [facility] TOTAL BILIRUBIN 0.6 0.0 - 1.2 mg/dL [facility] AST 29 0 - 37 U/L [facility] ALT 29 0 - 40 U/L [facility] GLOBULIN 3.5 1 - 4.8 g/dL [facility] EGFR 98 >59 mL/min/1.7 3m2 [facility] Comment:Estimated glomerular filtration rate calculated using the CKD-EPI refit equation. ANION GAP 15 10 - 20 mmol/L [facility] Blood 10/03/2024 8:43 AM EDT 10/03/2024 8:45 AM EDT us Venu Lr MD LAB BLOOD BKR ORDERABLES Aria l Result Performing Organization Address City/[facility]/ZIP Co de Phone Number [address] [address] * (ABNORMAL) Lipid panel (07/05/2024 9:02 AM EDT) HDL 52 mg/dL [facility] Comment: Interpretation <40 mg/dL: Low HDL cholesterol (major risk factor for CHD) Greater than or equal to 60 mg/dL: High HDL cholesterol ( negative risk factor for CHD) HDL - cholesterol is affected by a number of factors, e.g. smoking, excerise, hormones, sex and age. CHOLESTEROL 134 0 - 240 mg/dL [facility] TRIGLYCERIDES 121 30 - 160 mg/dL [facility] LDL 58 50 - 129 mg/dL [facility] Comment: LDL levels in terms of risk for coronary heart disease: <100 mg/dL: Optimal 100-129 mg/dL: Near or above optimal 130-159 mg/dL: Borderline high 160-189 mg/dL: High >190 mg/dL: Very High CARDIAC RISK RATIO 2.6(L) 3.4 - 5.0 [facility] Blood 07/05/2024 9:02 AM EDT 07/05/2024 9:06 AM EDT us Venu Lr MD LAB BLOOD BKR ORDERABLES Aria l Result Performing Organization Address City/[facility]/ZIP Co de Phone Number [address] [address] * HM COLONOSCOPY FOR RESULT ENTRY ONLY (05/16/2022) Venu Lr MD HEALTH MAINTENANCE Edited Res ult - Final * (ABNORMAL) Outside Glucose,Fasting (02/25/2016) Pathologist [facility] Glucose, fasting - External 102(A) 65 - 99 mg/dL Historical Provider LAB BLOOD ORDERABLES Aria l Result * Outside Hepatitis C Virus Screening (10/26/2012) Pathologist [facility] Hepatitis C Screening - External Neg Historical Provider LAB BLOOD ORDERABLES Aria l Result from Last 3 Months or Most Recently Relevant to Health Maintenance Insurance [employer] [facility] [facility] PPO OUT OF [facility] PPO CROSS OUT OF STATE PPO [facility] PPO BLUE CROSS OUT OF STATE PPO OUT [facility] PPO Care Teams Excavating Supervisor Relationship Specialty Start Date End Date Venu Lr MD [address] [place] [address] [email or web address] PCP - General 12/04/16 Stephanie Mijares PA-C [address] [place] [address] [email or web address] Physician Sprinkler Fitter Helper Hematology 08/21/23 Additional Source Comments The information contained in this document represents components of the legal health record. It is not the complete legal health record.[facility]
== END ==
LOC: HO.CARD 09:52
PROVIDERS: PCP Internal Medicine; Visit Provider Internal Medicine Cardiovascular Disease
DX: I42.9 Cardiomyopathy, unspecified (principal); I48.19 Other persistent atrial fibrillation
CPT/HCPCS: 93308

== ENCOUNTER → 2025-01-17 09:56 | Outpatient (BNV) | payer BC, SELFPAY | PROVIDERS: PCP Internal Medicine; Visit Provider Internal Medicine | DX: I42.9 Cardiomyopathy, unspecified (principal) | CPT/HCPCS: 93308 ==